=== PATIENT | female | born 1950 | race Caucasian/White ===

== ENCOUNTER → 2017-11-08 | Outpatient (REF) | payer MEDICARE, OTHER | LOC: M LAB REF 15:08 | DX: D23.12 Other benign neoplasm of skin of left eyelid, including canthus (principal) | CPT/HCPCS: 88305 ==

== ENCOUNTER 2019-04-25 14:54 | Inpatient (IN) | payer MEDICARE, OTHER ==
[~2019-04-25] VITALS: Ht 167.6 cm; Wt 138.8 kg
[2019-04-25] MEDS ORDERED: GI COCKTAIL 50ML BTL(HYOSCYAMINE/MAALOX/LIDOCAINE VISCOUS)(1:3:1) As Ordered ONE (15:11)
[2019-04-25] MEDS ORDERED: GI COCKTAIL 50ML BTL(HYOSCYAMINE/MAALOX/LIDOCAINE VISCOUS)(1:3:1) PO ONE (15:15)
--- NOTE | 2019-04-25 15:39 | REP ---
Clinical: Chest pain. Comparison: 08/07/2013. Findings: Cardiomegaly with indistinct pulmonary vasculature and increased markings as well as subtle lower lobe opacities suggest CHF/pulmonary interstitial edema. Differential diagnosis would include bronchitis and lower lobe infiltrates. No obvious effusion. No pneumothorax. Impression: Differential diagnosis includes CHF/interstitial edema versus bronchitis and multifocal infiltrates. Electronically Signed by Ruiz Ventura MD 04/25/2019 03:32 P
[2019-04-25 16:09] LABS: BASO % 0.3 % (0.0-1.0); EOS # 0.3 10^3/uL (0.0-0.5); EOS % 2.3 % (0.0-3.0); HEMATOCRIT 31.2 % (36.0-47.0); HEMOGLOBIN 9.5 g/dl (12.0-15.5); LYMPH # 0.6 10^3/uL (1.5-5.0); LYMPH % 5.4 % (24.0-44.0); MEAN CORPUSCULAR HEMOGLOBIN 29.8 pg (27.0-33.0); MEAN CORPUSCULAR HGB CONC 30.4 g/dl (32.0-36.5); MEAN CORPUSCULAR VOLUME 97.8 fl (80.0-96.0); MONO # 0.6 10^3/uL (0.0-0.8); MONO % 5.5 % (0.0-5.0); NEUTROPHILS # 9.9 10^3/uL (1.5-8.5); NEUTROPHILS % 86.2 % (36.0-66.0); PLATELET COUNT, AUTOMATED 242 10^3/uL (150-450); RED BLOOD COUNT 3.19 10^6/uL (4.00-5.40); WHITE BLOOD COUNT 11.5 10^3/uL (4.0-10.0)
[2019-04-25] MEDS ORDERED: ACET-683 PO (16:18)
[2019-04-25] MEDS ORDERED: CARV12.5 PO (16:18)
[2019-04-25] MEDS ORDERED: SYNT100T PO (16:18)
[2019-04-25] MEDS ORDERED: MAGN400C2 PO (16:18)
[2019-04-25] MEDS ORDERED: HYDR-3911 PO (16:18)
[2019-04-25] MEDS ORDERED: PEPC1TAB5 PO (16:18)
[2019-04-25] MEDS ORDERED: IRON18TA PO (16:18)
[2019-04-25] MEDS ORDERED: CVS1CAP2 PO (16:18)
[2019-04-25] MEDS ORDERED: LANTINJ4 SC ×2 (16:18)
[2019-04-25] MEDS ORDERED: ASPI81TA85 PO (16:18)
[2019-04-25] MEDS ORDERED: TORS20TA2 PO (16:18)
[2019-04-25] MEDS ORDERED: ALLO100T PO (16:18)
[2019-04-25 16:23] LABS: INR 1.1
[2019-04-25 16:24] LABS: PARTIAL THROMBOPLASTIN TIME 40.9 SECONDS (25.0-38.4)
[2019-04-25 16:37] LABS: ALBUMIN 3.4 GM/DL (3.2-5.2); BILIRUBIN,DIRECT 0.1 MG/DL (0.0-0.2); BILIRUBIN,TOTAL 0.5 MG/DL (0.2-1.0); CALCIUM LEVEL 8.8 MG/DL (8.8-10.2); CK-MB VALUE MASS 2.3 NG/ML (<3.6); CREATININE FOR GFR 2.23 MG/DL (0.55-1.30); FREE T4 1.74 NG/DL (0.76-1.46); GLOMERULAR FILTRATION RATE 23.3 (>45); MB/CK RELATIVE INDEX 2.19 (< OR =4); POTASSIUM SERUM 4.3 MEQ/L (3.5-5.1); THYROID STIMULATING HORMONE 2.74 uIU/ML (0.358-3.740); TOTAL PROTEIN 7.9 GM/DL (6.4-8.2); TROPONIN I 0.19 NG/ML (< 0.10)
--- NOTE | 2019-04-25 18:35 | REPVR ---
PROCEDURE INFORMATION: Exam: CT Chest Without Contrast Exam date and time: 04/25/2019 5:37 PM Age: 69 years old Clinical indication: Chest pain TECHNIQUE: Imaging protocol: Computed tomography of the chest without contrast. 3D rendering: MIP and/or 3D reconstructed images were created by the technologist. Radiation optimization: All CT scans at this facility use at least one of these dose optimization techniques: automated exposure control; mA and/or kV adjustment per patient size (includes targeted exams where dose is matched to clinical indication); or iterative reconstruction. COMPARISON: CR PORTABLE CHEST X-RAY 04/25/2019 3:29 PM FINDINGS: Lungs: 16 mm diameter right lower lobe nodule with irregular margins, unchanged since the prior study performed in 2013. Multifocal groundglass opacities, less prominent compared to the prior exam. Prominent reticular markings within both lungs. 4 mm right upper lobe pulmonary nodule (image 14 of series 202), unchanged. 5 mm left upper lobe pulmonary nodule (image 40 of series 202), unchanged. 5 mm nodule left upper lobe (image 28 of series 202), unchanged. New 5 mm nodule within the left upper lobe (image 28 of series 202). New 4 mm nodule within the supra-segment of the left lower lobe (image 39 of series 202). Pleural space: Tiny bilateral pleural effusions. No pneumothorax. Heart: Coronary atherosclerosis and coronary artery stents. Aorta: Unremarkable. No aortic aneurysm. Lymph nodes: Mediastinal and bilateral hilar lymphadenopathy unchanged. Gallbladder and bile ducts: Status post cholecystectomy. Bones/joints: Unremarkable. No acute fracture. Soft tissues: Unremarkable. IMPRESSION: 1. Tiny bilateral pleural effusions, new. 2. Prominent reticular markings and scattered groundglass lung opacities, possibly secondary to pulmonary edema. Other interstitial pneumonitis, including infection is not excluded. 3. Right lower lobe pulmonary nodule, measuring 16 mm, unchanged. 4. Mediastinal and bilateral hilar lymphadenopathy, unchanged. 5. Multiple small pulmonary nodules with 2 new pulmonary nodules, measuring 5 mm and 4 mm within the left upper lobe and left lower lobe. Followup imaging is recommended as per Fleischner criteria guidelines. For patients at low risk (minimal or absent history of smoking and of other known risk factors), no routine follow-up is indicated. For patients at high risk (history of smoking or of other known risk factors), consider optional CT at 12 months. (Mirela et al., Fleischner Society, 2017). Electronically signed by: Jayme Prince On 04/25/2019 18:34:45 PM
[2019-04-25] MEDS ORDERED: CALC250T PO (19:33)
[2019-04-25] MEDS ORDERED: PANT-23 PO (19:33)
[2019-04-25] MEDS ORDERED: ATOR1TAB21 PO (19:33)
[2019-04-25] MEDS ORDERED: SYNT125T PO (19:33)
[2019-04-25 19:42] LABS: CK-MB VALUE MASS 3.1 NG/ML (<3.6); MB/CK RELATIVE INDEX 3.04 (< OR =4); TROPONIN I 0.25 NG/ML (< 0.10)
[2019-04-25] MEDS ORDERED: FUROSEMIDE 40 MG/4 ML VIAL (J1940) IV ONE (20:00)
[2019-04-25] MEDS ORDERED: ACETAMINOPHEN 500 MG TAB PO PRN (21:45)
[2019-04-25] MEDS: PANTOPRAZOLE 40MG TAB (PROTONIX) PO SCH (23:02)
[2019-04-25] MEDS: CARVedilol 12.5 MG TAB PO SCH (23:02)
[2019-04-25] MEDS: **hydrALAZINE** 50 MG TAB PO SCH (23:02)
[2019-04-25] MEDS: HEPARIN SOD (PORCINE) 5000 UNITS/ML VIAL SC SCH (23:07)
--- NOTE | 2019-04-25 23:24 | HPEPDOC ---
[facility] Medical History & Physical Date of Admission Apr 25, 2019 Date of Service: Apr 25, 2019 Attending Physician: JAQUAN MILLER MD History and Physical CHIEF COMPLAINT: Shortness of breath and chest pain HISTORY OF PRESENT ILLNESS: 69-year-old female with past medical history of CHF, hypertension, gout, coronary artery disease, status post stent 1, diabetes mellitus and hypothyroidism presents at home with progressive shortness of breath and chest pain. She was admitted at [facility] last week and discharged on Saturday for CHF exacerbation. She reports feeling well after discharge, but started having progressive shortness of breath with epigastric/chest pain over the past couple days. She reports having worsening reflux symptoms over the past month has been started on Protonix and Pepcid but reports pain controlled symptoms. She reports significant improvement in dyspnea and complete resolution of chest pain after getting GI cocktail in the ED. She has no associated symptoms, denies any nausea, vomiting, abdominal pain, diarrhea or headaches. 10 point review of systems is negative except for above PAST MEDICAL HISTORY: 1. CHF. 2. Hypertension. 3. Gout. 4. Diabetes mellitus. 5. Hypothyroidism. 6. Coronary artery disease PAST SURGICAL HISTORY: 1. Cholecystectomy. SOCIAL HISTORY: Never smoker Denies alcohol. Denies drug use FAMILY HISTORY: Positive for heart disease ALLERGIES: Please see below. HOME MEDICATIONS: Please see below. PHYSICAL EXAMINATION: VITAL SIGNS: Please see below. GENERAL: No distress HEENT: Normocephalic, atraumatic, moist mucous membranes NECK: Supple CARDIOVASCULAR EXAMINATION: S1, S2, no murmurs RESPIRATORY EXAMINATION: Bibasilar rhonchi, no wheezing ABDOMINAL EXAMINATION: Soft, nontender, nondistended, positive bowel sounds EXTREMITIES: Range of motion intact SKIN: No rash NEUROLOGICAL EXAMINATION: Alert and oriented 3, no focal deficits PSYCHIATRIC EXAMINATION: Calm and cooperative LABORATORY DATA: See below. IMAGING: CT with vascular congestion and trace pleural effusions MICROBIOLOGY: Please see below. ASSESSMENT: 69-year-old female with extensive medical history, was recently admitted for CHF exacerbation, presents with symptoms concerning for CHF exacerbation and peptic ulcer disease. PLAN: 1. Acute on chronic CHF exacerbation. TTE pending, status post Lasix 40 g IV in the ED, continue Lasix 40 mg IV twice a day, weigh daily, monitor intake and output, fluid restriction of 1200 cc per day. 2. Peptic ulcer disease. Protonix 40 mg twice a day, Pepcid 20 mg twice a day. 3. Chronic kidney disease. Possible superimposed acute kidney injury, no previous labs for comparison, possible cardiorenal, will monitor with diuresis. 4. Diabetes mellitus. Decrease Levemir to 25 units twice a day, sliding scale insulin before meals and at bedtime. 5. Gout. Continue allopurinol 6. Hypertension. Continue Coreg and hydralazine 7. Coronary artery disease. Stable, continue aspirin, statin, beta rick 8. Hypothyroidism. Continue levothyroxine DVT prophylaxis: Heparin subcutaneous GI per flexes: PPI and Pepcid Vital Signs Vital Signs Date Time Temp Pulse Resp B/P (MAP) Pulse Ox O2 Delivery O2 Flow Rate FiO2 04/25/19 23:02 141/64 04/25/19 22:37 97.5 04/25/19 22:24 67 96 04/25/19 22:21 16 Room Air 04/25/19 17:39 2.0 Laboratory Data Labs 24H Laboratory Tests 2 04/25/19 15:54: Immature Granulocyte % (Auto) 0.3, Neutrophils (%) (Auto) 86.2H, Lymphocytes (%) (Auto) 5.4L, Monocytes (%) (Auto) 5.5H, Eosinophils (%) (Auto) 2.3, Basophils (%) (Auto) 0.3, Neutrophils # (Auto) 9.9H, Lymphocytes # (Auto) 0.6L, Monocytes # (Auto) 0.6, Eosinophils # (Auto) 0.3, Basophils # (Auto) 0.0, Nucleated Red Blood Cells % (auto) 0.0, Prothrombin Time 14.0, Prothromb Time International Ratio 1.10, Activated Partial Thromboplast Time 40.9H, Anion Gap 6L, Glomerular Filtration Rate 23.3L, Calcium Level 8.8, Total Bilirubin 0.5, Direct Bilirubin 0.1, Aspartate Amino Transf (AST/SGOT) 17, Alanine Aminotransferase (ALT/SGPT) 18, Alkaline Phosphatase 114, Total Creatine Kinase 105, Creatine Kinase MB 2.3, Creatine Kinase MB Relative Index 2.19, Troponin I 0.19H, NV-Pui-M-Type Natriuretic Peptide 6047H, Total Protein 7.9, Albumin 3.4, Albumin/Globulin Ratio 0.76L, Lipase 92, Thyroid Stimulating Hormone (TSH) 2.740, Free Thyroxine 1.74H 04/25/19 15:59: Urine Color YELLOW, Urine Appearance CLEAR, Urine pH 6.0, Urine Specific [place] 1.008, Urine Protein NEGATIVE, Urine Glucose (UA) NEGATIVE, Urine Ketones NEGATIVE, Urine Blood 1+H, Urine Nitrite NEGATIVE, Urine Bilirubin NEGATIVE, Urine Urobilinogen 0.2, Urine Leukocyte Esterase NEGATIVE, Urine WBC (Auto) 4H, Urine RBC (Auto) 1, Urine Hyaline Casts (Auto) 1, Urine Bacteria (Auto) 1+H, Urine Squamous Epithelial Cells 1, Urine Mucus (Auto) SMALL, Urine Sperm (Auto) 04/25/19 19:09: Total Creatine Kinase 102, Creatine Kinase MB 3.1, Creatine Kinase MB Relative Index 3.04, Troponin I 0.25#H CBC/BMP Laboratory Tests 04/25/19 15:54 Home Medications Scheduled Acetaminophen (Acetaminophen) 500 Mg Tablet, 1,000 MG PO BID Allopurinol (Allopurinol) 100 Mg Tablet, 100 MG PO DAILY Aspirin (Aspir 81) 81 Mg Tablet.dr, 81 MG PO DAILY Atorvastatin Calcium (Atorvastatin Calcium) 20 Mg Tablet, 20 MG PO DAILY Calcium Citrate (Calcium Citrate) 250 Mg Tablet, 250 MG PO DAILY Carvedilol (Carvedilol) 12.5 Mg Tablet, 12.5 MG PO BID Famotidine (Pepcid) 20 Mg Tablet, 40 MG PO DAILY Hydralazine HCl (Hydralazine HCl) 50 Mg Tablet, 100 MG PO BID Insulin Glargine,Hum.rec.anlog (Lantus Solostar) 100 Unit/1 Ml Insuln.pen, 50 UNIT SC QHS Insulin Glargine,Hum.rec.anlog (Lantus Solostar) 100 Unit/1 Ml Insuln.pen, 50 UNITS SC QAM Iron (Iron) 18 Mg Tablet, 18 MG PO DAILY Lactobacillus Combo No.10 (Probiotic) 1 Each Capsule, 1 TAB PO DAILY Levothyroxine Sodium (Synthroid) 125 Mcg Tablet, 125 MCG PO DAILY Magnesium Oxide (Magnesium) 400 Mg Capsule, 400 MG PO DAILY Pantoprazole Sodium (Pantoprazole Sodium) 40 Mg Tablet.dr, 40 MG PO QPM Torsemide (Torsemide) 20 Mg Tablet, 40 MG PO DAILY Allergies Coded Allergies: Sulfa (Sulfonamide Antibiotics) (Verified Allergy, Intermediate, rash, 04/25/19) A-FIB/CHADSVASC A-FIB History Current/History of A-Fib/PAF?: No JAQUAN MILLER MD Apr 25, 2019 23:24
[2019-04-25 23:45] VITALS: BP 141/64
[2019-04-26] VITALS (17 sets, daily range): BP systolic 123–194; BP diastolic 49–96
[2019-04-26] MEDS ORDERED: GLUCAGON FOR INJ 1 MG VIAL (J1610) SC PRN (00:15)
[2019-04-26] MEDS ORDERED: GLUCOSE 4 GM CHEW TABLET PO PRN (00:15)
[2019-04-26] MEDS ORDERED: DEXTROSE 50% 50 ML SYRINGE IV PRN (00:15)
[2019-04-26] MEDS: LEVEMIR (INSULIN DETEMIR) 1 UNITS/0.01ML SC SCH ×3 (01:43→21:00)
[2019-04-26] MEDS: HumaLOG INSULIN (NovoLOG) PER UNIT SC SCH ×5 (01:43→21:00)
[2019-04-26 02:20] LABS: CK-MB VALUE MASS 5.7 NG/ML (<3.6); MB/CK RELATIVE INDEX 4.38 (< OR =4); TROPONIN I 0.73 NG/ML (< 0.10)
[2019-04-26] MEDS ORDERED: LEVOTHYROXINE 125MCG TABLET (0.125MG) PO SCH (06:00)
[2019-04-26] MEDS: FUROSEMIDE 40 MG/4 ML VIAL (J1940) IV SCH ×2 (08:23→21:00)
[2019-04-26] MEDS: FAMOTIDINE 20 MG TAB PO SCH ×3 (08:24→21:19)
[2019-04-26] MEDS: PANTOPRAZOLE 40MG TAB (PROTONIX) PO SCH ×3 (08:24→21:19)
[2019-04-26] MEDS: **hydrALAZINE** 50 MG TAB PO SCH ×2 (08:24→21:00)
[2019-04-26] MEDS: CARVedilol 12.5 MG TAB PO SCH ×3 (08:25→21:20)
[2019-04-26] MEDS: HEPARIN SOD (PORCINE) 5000 UNITS/ML VIAL SC SCH (08:25)
[2019-04-26] MEDS ORDERED: TORSEMIDE 20 MG TAB PO SCH (09:00)
[2019-04-26] MEDS ORDERED: ASPIRIN 81 MG ENTERIC TAB PO SCH (09:00)
[2019-04-26] MEDS ORDERED: allopurinoL 100 MG TAB PO SCH (09:00)
[2019-04-26] MEDS ORDERED: ATORVASTATIN 20 MG TAB PO SCH (09:00)
--- NOTE | 2019-04-26 11:16 | IPNPDOC ---
Date Seen The patient was seen on 04/26/19. Progress Note SUBJECTIVE: Patient appeared to be comfortable this morning. Denies any chest pain, discomfort or SOB. Reportedly LE swelling had improved significantly. OBJECTIVE PHYSICAL EXAMINATION: VITAL SIGNS: Please see below. General: No acute distress, Alert, morbidly obese Eyes: Normal sclera, EOMI HENT: Atraumatic Cardiovascular: Normal rate. Pulmonary: Decrease breath sounds, no wheezing appreciated GI: Soft, nontender, nondistended Skin: Significant chronic venous stasis in LE with discoloration in LE below the knees with some blisters. Neuro: CN grossly intact. No focal deficits. Strengths equal b/l. Psych: oriented x 3 LABORATORY DATA, IMAGING STUDIES, MICROBIOLOGY: Please see below. DVT prophylaxis ordered?: HSQ ASSESSMENT AND PLAN: 1. Suspect acute on chronic CHF - pending TTE. c/w Lasix IV BID. - LE swelling reportedly improved significantly although still appear very swollen. - Monitor I/O, daily weights. - fluid restriction. 2. PUD - Chest pain occurs post meals with resolution of symptoms with Gi cocktail. - c/w Protonix/Pepcid. 3. Suspect CKD - monitor BMP. Unknown baseline. 4. DM - Lev decreased to 25 units BID with ISS ACHS, as just as needed. 5. HTN - BP controlled. c/w coreg and hydralazine 6. Gout - c./w allopurinol 7. CAD - c/w home med 8. Hypothyroidism - c/w synthroid Dispo: Home once medically cleared VS, I&O, 24H, Fishbone Vital Signs/I&O Vital Signs Date Time Temp Pulse Resp B/P (MAP) Pulse Ox O2 Delivery O2 Flow Rate FiO2 04/26/19 08:25 70 123/53 04/26/19 06:00 98.9 19 96 Room Air 04/25/19 17:39 2.0 I&O- Last 24 Hours up to 6 AM 04/26/19 06:00 Intake Total 520 ml Output Total 1425 ml Balance -905 ml Laboratory Data 24H LABS Laboratory Tests 2 04/25/19 15:54: Immature Granulocyte % (Auto) 0.3, Neutrophils (%) (Auto) 86.2H, Lymphocytes (%) (Auto) 5.4L, Monocytes (%) (Auto) 5.5H, Eosinophils (%) (Auto) 2.3, Basophils (%) (Auto) 0.3, Neutrophils # (Auto) 9.9H, Lymphocytes # (Auto) 0.6L, Monocytes # (Auto) 0.6, Eosinophils # (Auto) 0.3, Basophils # (Auto) 0.0, Nucleated Red Blood Cells % (auto) 0.0, Prothrombin Time 14.0, Prothromb Time International Ratio 1.10, Activated Partial Thromboplast Time 40.9H, Anion Gap 6L, Glomerular Filtration Rate 23.3L, Calcium Level 8.8, Total Bilirubin 0.5, Direct Bilirubin 0.1, Aspartate Amino Transf (AST/SGOT) 17, Alanine Aminotransferase (ALT/SGPT) 18, Alkaline Phosphatase 114, Total Creatine Kinase 105, Creatine Kinase MB 2.3, Creatine Kinase MB Relative Index 2.19, Troponin I 0.19H, OP-Bep-B-Type Natriuretic Peptide 6047H, Total Protein 7.9, Albumin 3.4, Albumin/Globulin Ratio 0.76L, Lipase 92, Thyroid Stimulating Hormone (TSH) 2.740, Free Thyroxine 1.74H 04/25/19 15:59: Urine Color YELLOW, Urine Appearance CLEAR, Urine pH 6.0, Urine Specific [place] 1.008, Urine Protein NEGATIVE, Urine Glucose (UA) NEGATIVE, Urine Ketones NEGATIVE, Urine Blood 1+H, Urine Nitrite NEGATIVE, Urine Bilirubin NEGATIVE, Urine Urobilinogen 0.2, Urine Leukocyte Esterase NEGATIVE, Urine WBC (Auto) 4H, Urine RBC (Auto) 1, Urine Hyaline Casts (Auto) 1, Urine Bacteria (Auto) 1+H, U rine Squamous Epithelial Cells 1, Urine Mucus (Auto) SMALL, Urine Sperm (Auto) 04/25/19 19:09: Total Creatine Kinase 102, Creatine Kinase MB 3.1, Creatine Kinase MB Relative Index 3.04, Troponin I 0.25#H 04/26/19 01:05: Total Creatine Kinase 130, Creatine Kinase MB 5.7H, Creatine Kinase MB Relative Index 4.38H, Troponin I 0.73#H 04/26/19 01:23: Bedside Glucose (Misc Panel) 84 04/26/19 05:41: Bedside Glucose (Misc Panel) 62L 04/26/19 06:30: Bedside Glucose (Misc Panel) 108 CBC/BMP Laboratory Tests 04/25/19 15:54 XAVIER,CANH T. MD Apr 26, 2019 11:16
--- NOTE | 2019-04-26 15:35 | ECGEPIP ---
[facility] - ED Test Date: 2019-04-25 Pat Name: DEEDEE GRAY Department: Room: - Gender: Female Rehabilitation Specialist: : 1950 Requested By: RICHARD Gonzalez Order Number: [id number] Reading MD: Henrique Renee Measurements Intervals [place] Rate: 74 P: 56 [place]: 166 QRS: 20 QRSD: 108 T: 116 QT: 405 QTc: 450 Interpretive Statements SINUS RHYTHM ST ELEVATION IN AVR>V1, DIFFUSE ST DEPRESSIONS, CONSIDER ACUTE LCMA OCCLUSION Electronically Signed on 04-26-2019 15:34:54 EST by Henrique Renee
--- NOTE | 2019-04-26 15:41 | ECGEPIP ---
[facility] - ED Test Date: 2019-04-25 Pat Name: DEEDEE GRAY Department: Room: [place] [address] Gender: Female Head Batcher: ZACH : 1950 Requested By: RICHARD Gonzalez Order Number: [id number] Reading MD: Henrique Renee Measurements Intervals [place] Rate: 70 P: 48 [place]: 169 QRS: 12 QRSD: 108 T: 117 QT: 402 QTc: 436 Interpretive Statements SINUS RHYTHM ST ELEVATION IN AVR.V1, WITH WIDESPRRSASD ST DEPRESSIONS PERSIST, CONSIDER ACUTE LMCA OCCLUSION Electronically Signed on 04-26-2019 15:40:39 EST by Henrique Renee
[2019-04-26] MEDS ORDERED: MAALOX 30 ML SUSP *UDC PO ONE (19:00)
[2019-04-26] MEDS ORDERED: NITROGLYCERIN 0.4 MG SUBL TABLET As Ordered ONE (19:23)
[2019-04-26] MEDS ORDERED: GI COCKTAIL 50ML BTL(HYOSCYAMINE/MAALOX/LIDOCAINE VISCOUS)(1:3:1) PO ONE (19:30)
[2019-04-26] MEDS ORDERED: NITROGLYCERIN 0.4 MG SUBL TABLET SL STA (19:40)
[2019-04-26 19:57] LABS: HEMATOCRIT 31.2 % (36.0-47.0); HEMOGLOBIN 9.6 g/dl (12.0-15.5); MEAN CORPUSCULAR HEMOGLOBIN 29.8 pg (27.0-33.0); MEAN CORPUSCULAR HGB CONC 30.8 g/dl (32.0-36.5); MEAN CORPUSCULAR VOLUME 96.9 fl (80.0-96.0); PLATELET COUNT, AUTOMATED 275 10^3/uL (150-450); RED BLOOD COUNT 3.22 10^6/uL (4.00-5.40)
[2019-04-26] MEDS ORDERED: NITROGLYCERIN 2% OINT 1 GM *U/D* PKT TOP SCH (20:00)
[2019-04-26] MEDS ORDERED: CLOPIDOGREL 75 MG TAB PO STA (20:04)
[2019-04-26] MEDS ORDERED: HEPARIN DRIP 25,000 UNITS in IV 1 EA IV SCH (20:04)
[2019-04-26 20:09] LABS: INR 1.15; PROTHROMBIN TIME 14.4 SECONDS (11.8-14.0)
[2019-04-26 20:10] LABS: PARTIAL THROMBOPLASTIN TIME 42.8 SECONDS (25.0-38.4)
[2019-04-26] MEDS ORDERED: ASPIRIN 325 MG TAB PO ONE (20:15)
[2019-04-26] MEDS ORDERED: HEPARIN SOD (PORCINE) 5000 UNITS/ML VIAL IV ONE (20:15)
[2019-04-26] MEDS ORDERED: NITROGLYCERIN 2% OINT 1 GM *U/D* PKT As Ordered ONE (20:18)
[2019-04-26 20:27] LABS: ALBUMIN 3.5 GM/DL (3.2-5.2); BILIRUBIN,TOTAL 0.6 MG/DL (0.2-1.0); CALCIUM LEVEL 8.5 MG/DL (8.8-10.2); CREATININE FOR GFR 2.47 MG/DL (0.55-1.30); GLOMERULAR FILTRATION RATE 20.7 (>45); POTASSIUM SERUM 4.3 MEQ/L (3.5-5.1); TOTAL PROTEIN 7.6 GM/DL (6.4-8.2); TROPONIN I 1.23 NG/ML (< 0.10)
--- NOTE | 2019-04-26 20:30 | REP ---
Clinical: Chest pain. Comparison: 04/25/2019. Findings: Stable cardiomegaly. Increased perihilar opacities with indistinct pulmonary vasculature, cephalization, and increased interstitial markings suggesting pulmonary interstitial edema. Differential diagnosis includes multifocal pneumonia. No obvious effusion. No pneumothorax. Skeletal structures stable. Impression: Increasing findings suggesting worsening pulmonary edema. Differential diagnosis includes multifocal pneumonia. Electronically Signed by Ruiz Ventura MD 04/26/2019 08:21 P
[2019-04-26] MEDS: METOPROLOL 5 MG/5 ML VIAL IV SCH ×3 (20:39→22:22)
[2019-04-26] MEDS ORDERED: NITROGLYCERIN/D5W 100MCG/ML 25 MG in IV 1 EA IV SCH (21:00)
[2019-04-26] MEDS: ATORVASTATIN 20 MG TAB PO SCH ×2 (21:00→21:20)
[2019-04-26] MEDS ORDERED: MORPHINE 2 MG/ML 1ML VIAL (J2270) As Ordered ONE (21:29)
--- NOTE | 2019-04-26 21:37 | DS.PDOC ---
Discharge Summary General Date of Admission Apr 25, 2019 at 21:44 Date of Discharge 04/26/19 Attending Physician: JAQUAN MILLER MD Discharge Summary PROCEDURES PERFORMED DURING STAY: None ADMITTING DIAGNOSES: 1. NSTEMI DISCHARGE DIAGNOSES: 1. NSTEMI COMPLICATIONS/CHIEF COMPLAINT: Cad, Chf, Ckd, Gout. HISTORY OF PRESENT ILLNESS: 69 y.o female w/ an extensive medical history was admitted for CHF exacerbation. She had CP on presentation which resolved w/ GI coctail and was thought to be epigastric in nature. She had mildly elevated troponin which were thought to be from elevated creatinine/demand ischemia. She reportedly did well throughout the day but started having sudden precordial chest pain in the evening today. I evaluated her at bedside, repeated her labs & EKG. EKG showed prior ST depressions in Leads I, II, V4-V6 with new changes (T- wave inversions in leads III & AvF). Her chest pain improved temporarily with SL Nitroglycerin, she received a total of 4 SL doses which resolved her pain for a few minutes. Nitropaste was then applied with slight improvement in CP but not complete resolution, she was also given a dose of GI coctail without improvement. Her labs showed an elevated of Troponin to 1.23; case was discussed w/ Dr. Terry from Cardiology, who recommended immediate transfer to a facility able to perform heart cath. [facility] was called but they didn't have any beds available, then [facility] was called but we had difficulty ob taining their transfer center. [facility] was then called, discussed case with their Bean Roaster who accepted the patient for immediate transfer; she will be going to their CCU. Air transport was attempted due to acuity of her situation but declined due to weather conditions. She will be transferred via ambulance, STAT transfer being arranged currently. Patient continues to have chest pain, will start patient on Nitroglycerin drip. She was also treated w/ Aspirin 325 mg, Plavix 150 mg & started on a heparin gtt; she was also given two doses of Metoprolol 5 mg IV. She is currently hypertensive SBP ~160s. HOSPITAL COURSE: as above] DISCHARGE MEDICATIONS: Please see below. ALLERGIES: Please see below. PHYSICAL EXAMINATION ON DISCHARGE: VITAL SIGNS: Please see below. GENERAL: mild distress HEENT: normocephalic, atraumatic, moist mucous membranes NECK: supple CARDIOVASCULAR EXAMINATION: S1, S2, no murmurs RESPIRATORY EXAMINATION: tachypneic, bibasilar ronchi, no wheezing ABDOMINAL EXAMINATION: soft, non-tender, non-distended EXTREMITIES: ROM intact SKIN: no rash NEUROLOGICAL EXAMINATION: no focal deficits PSYCHIATRIC EXAMINATION: cooperative LABORATORY DATA: Please see below. IMAGING: CXR w/ vascular congestion PROGNOSIS: guarded ACTIVITY: bed rest DIET: NPO DISCHARGE PLAN: f/u with Bean Roaster at [facility] DISPOSITION: [facility] DISCHARGE CONDITION: hemodynamically stable w/ NSTEMI TIME SPENT ON DISCHARGE: Greater than 45 minutes. Vital Signs/I&Os Vital Signs Date Time Temp Pulse Resp B/P (MAP) Pulse Ox O2 Delivery O2 Flow Rate FiO2 04/26/19 20:39 84 174/74 04/26/19 17:30 20 92 Room Air 04/26/19 14:00 98.1 04/25/19 17:39 2.0 I&O- Last 24 Hours up to 6 AM 04/26/19 06:00 Intake Total 520 ml Output Total 1425 ml Balance -905 ml Laboratory Data Labs 24H Laboratory Tests 2 04/26/19 01:05: Total Creatine Kinase 130, Creatine Kinase MB 5.7H, Creatine Kinase MB Relative Index 4.38H, Troponin I 0.73#H 04/26/19 01:23: Bedside Glucose (Misc Panel) 84 04/26/19 05:41: Bedside Glucose (Misc Panel) 62L 04/26/19 06:30: Bedside Glucose (Misc Panel) 108 04/26/19 11:57: Bedside Glucose (Misc Panel) 174H 04/26/19 16:58: Bedside Glucose (Misc Panel) 145H 04/26/19 19:39: Nucleated Red Blood Cells % (auto) 0.0, Prothrombin Time 14.4H, Prothromb Time International Ratio 1.15, Activated Partial Thromboplast Time 42.8H, Anion Gap 8, Glomerular Filtration Rate 20.7L, Calcium Level 8.5L, Total Bilirubin 0.6, Aspartate Amino Transf (AST/SGOT) 25, Alanine Aminotransferase (ALT/SGPT) 20, Alkaline Phosphatase 115, Troponin I 1.23#H, Total Protein 7.6, Albumin 3.5, Albumin/Globulin Ratio 0.85L CBC/BMP Laboratory Tests 04/26/19 19:39 FSBS Laboratory Tests Test 04/26/19 01:23 04/26/19 05:41 04/26/19 06:30 04/26/19 11:57 Range/Units Bedside Glucose (Misc Panel) 84 62 108 174 80-115 MG/DL Test 04/26/19 16:58 Range/Units Bedside Glucose (Misc Panel) 145 80-115 MG/DL Discharge Medications Scheduled Acetaminophen (Acetaminophen) 500 Mg Tablet, 1,000 MG PO BID, (Reported) Allopurinol (Allopurinol) 100 Mg Tablet, 100 MG PO DAILY, (Reported) Aspirin (Aspir 81) 81 Mg Tablet.dr, 81 MG PO DAILY, (Reported) Atorvastatin Calcium (Atorvastatin Calcium) 20 Mg Tablet, 20 MG PO DAILY, (Reported) Calcium Citrate (Calcium Citrate) 250 Mg Tablet, 250 MG PO DAILY, (Reported) Carvedilol (Carvedilol) 12.5 Mg Tablet, 12.5 MG PO BID, (Reported) Famotidine (Pepcid) 20 Mg Tablet, 40 MG PO DAILY, (Reported) Hydralazine HCl (Hydralazine HCl) 50 Mg Tablet, 100 MG PO BID, (Reported) Insulin Glargine,Hum.rec.anlog (Lantus Solostar) 100 Unit/1 Ml Insuln.pen, 50 UNIT SC QHS, (Reported) Insulin Glargine,Hum.rec.anlog (Lantus Solostar) 100 Unit/1 Ml Insuln.pen, 50 UNITS SC QAM, (Reported) Iron (Iron) 18 Mg Tablet, 18 MG PO DAILY, (Reported) Lactobacillus Combo No.10 (Probiotic) 1 Each Capsule, 1 TAB PO DAILY, (Reported) Levothyroxine Sodium (Synthroid) 125 Mcg Tablet, 125 MCG PO DAILY, (Reported) Magnesium Oxide (Magnesium) 400 Mg Capsule, 400 MG PO DAILY, (Reported) Pantoprazole Sodium (Pantoprazole Sodium) 40 Mg Tablet.dr, 40 MG PO QPM, (Reported) Torsemide (Torsemide) 20 Mg Tablet, 40 MG PO DAILY, (Reported) Allergies Coded Allergies: Sulfa (Sulfonamide Antibiotics) (Verified Allergy, Intermediate, rash, 04/25/19) JAQUAN MILLER MD Apr 26, 2019 21:37
[2019-04-26] MEDS ORDERED: MORPHINE 2 MG/ML 1ML VIAL (J2270) IV ONE (22:00)
[2019-04-26 22:17] LABS: ABG BASE EXCESS -0.3 (-2.0-2.0); ABG HCO3 24.5 MEQ/L (22.0-26.0); ABG O2 SATURATION 98.1 % (95.0-99.0); ABG PARTIAL PRESSURE CO2 40.6 mmHg (35.0-45.0); ABG PARTIAL PRESSURE O2 109.5 mmHg (75.0-100.0); ABG STANDARD HCO3 24.3 MEQ/L (22.0-26.0); ABG TOTAL CO2 25.8 MEQ/L (23.0-31.0); ABG pH (ARTERIAL) 7.399 UNITS (7.350-7.450)
[2019-04-26] MEDS: NITROGLYCERIN 0.3 MG SUBL TAB SL PRN ×3 (23:16→23:20)
--- NOTE | 2019-04-27 00:16 | ECGEPIP ---
[facility] Test Date: 2019-04-26 Pat Name: DEEDEE GRAY Department: Room: [place] [address] Gender: Female Distribution Collection Operator: FLOR : 1950 Requested By: JAQUAN Vazquez Order Number: [id number] Reading MD: Rupesh Krueger Measurements Intervals [place] Rate: 79 P: 7 [place]: 169 QRS: 39 QRSD: 108 T: -68 QT: 396 QTc: 454 Interpretive Statements SINUS RHYTHM Nonspecific ST-T wave abnormalities Similar to tracing done 04-25-19 Electronically Signed on 04-27-2019 0:15:38 EST by Rupesh Krueger
[2020-04-25] MEDS ORDERED: ATORVASTATIN 20 MG TAB PO SCH (21:00)
== END 2019-04-26 22:57 | disposition short-term general hospital (02) | DRG 281 ==
LOC: M ED 14:54 → M ED INP 21:44 → M MSPAV 22:42 → M PCU 04-26 19:56
PROVIDERS: ADMIT Internal Medicine; ATTEND Internal Medicine
DX: I21.4 Non-ST elevation (NSTEMI) myocardial infarction (principal); I13.0 Hypertensive heart and chronic kidney disease with heart failure and stage 1 through stage 4 chronic kidney disease, or unspecified chronic kidney disease; I50.9 Heart failure, unspecified; I25.10 Atherosclerotic heart disease of native coronary artery without angina pectoris; M10.9 Gout, unspecified; N18.9 Chronic kidney disease, unspecified; Z79.899 Other long term (current) drug therapy; Z79.82 Long term (current) use of aspirin; Z79.4 Long term (current) use of insulin; Z88.2 Allergy status to sulfonamides; E11.9 Type 2 diabetes mellitus without complications; E03.9 Hypothyroidism, unspecified

== ENCOUNTER 2023-10-23 10:25 | Inpatient (IN) | payer MEDICARE, OTHER ==
[~2023-10-23] VITALS: Ht 162.6 cm; Wt 116.3 kg
[~2023-10-23 10:25] MED LIST changes: -ACET32TAB PO; -ASPI81TA26 PO; -ATOR40TA75 PO; -BISA10SU4 PR; -CARV6.25 PO; -FLEEENE12 PR; -FURO10EL PO; -GLUC1KIT IM; -INSUH10VL SC; -LEVO125T4 PO; -MELA5TAB58 PO; -METO25TA PO; -MOM30SS2 PO; -POTA20PW PO; -TORS100T PO
[2023-10-23 11:28] LABS: VENOUS BASE EXCESS 0.2 (-2.0-2.0); VENOUS HCO3 25.4 MMOL/L (23.0-27.0); VENOUS PARTIAL PRESSURE CO2 43.7 mmHg (38.0-50.0); VENOUS PH 7.382 UNITS (7.330-7.430); VENOUS STANDARD HCO3 24.5 MMOL/L; VENOUS TOTAL CO2 26.7 MMOL/L (24.0-28.0)
[2023-10-23 11:39] LABS: BASO % 0.5 % (0.0-1.0); EOS # 0.1 10^3/uL (0.0-0.5); EOS % 1.6 % (0.0-3.0); HEMATOCRIT 31.7 % (36.0-47.0); HEMOGLOBIN 9.4 g/dl (12.0-15.5); LYMPH # 0.4 10^3/uL (1.5-5.0); LYMPH % 4.7 % (24.0-44.0); MEAN CORPUSCULAR HEMOGLOBIN 26.9 pg (27.0-33.0); MEAN CORPUSCULAR HGB CONC 29.7 g/dl (32.0-36.5); MEAN CORPUSCULAR VOLUME 90.6 fl (80.0-96.0); MONO # 0.6 10^3/uL (0.0-0.8); MONO % 7.9 % (2.0-8.0); NEUTROPHILS # 6.3 10^3/uL (1.5-8.5); NEUTROPHILS % 84.9 % (36.0-66.0); PLATELET COUNT, AUTOMATED 135 10^3/uL (150-450); WHITE BLOOD COUNT 7.4 10^3/uL (4.0-10.0)
[2023-10-23] MEDS: FUROSEMIDE 40MG/4ML VIAL IV ONE (11:40)
[2023-10-23 11:51] LABS: INR 1.23; PROTHROMBIN TIME 15.2 SECONDS (12.5-14.5)
[2023-10-23 12:04] LABS: THYROID STIMULATING HORMONE 6.331 uIU/ML (0.55-4.78)
[2023-10-23 12:16] LABS: BILIRUBIN,DIRECT 0.7 MG/DL (<0.4); BILIRUBIN,TOTAL 1.2 MG/DL (0.3-1.2); CALCIUM LEVEL 8.3 MG/DL (8.3-10.6); CREATININE FOR GFR 3.23 MG/DL (0.55-1.30); MAGNESIUM LEVEL 2.4 MG/DL (1.8-2.4); POTASSIUM SERUM 4.7 MMOL/L (3.5-5.1); TOTAL PROTEIN 6.7 G/DL (5.7-8.2)
[2023-10-23] MEDS ORDERED: GLUCAGON INJ 1MG VIAL SC PRN (13:10)
[2023-10-23] MEDS ORDERED: GLUCOSE 4 GM CHEW PO PRN (13:10)
[2023-10-23] MEDS ORDERED: DEXTROSE 50% 50ML SYRINGE IV PRN (13:10)
[2023-10-23 13:21] LABS: CK-MB VALUE MASS 1.7 NG/ML (<3.6)
[2023-10-23 13:23] LABS: PERCENT SATURATION 16.8 % (13.2-45.0)
[2023-10-23 13:25] LABS: FERRITIN 236.2 NG/ML (7.3-270.7); FREE T3 1.8 PG/ML (2.3-4.2)
[2023-10-23 13:26] LABS: FREE T4 1.21 NG/DL (0.89-1.76)
[2023-10-23 13:27] LABS: MB/CK RELATIVE INDEX 5.31 (< OR =4)
[2023-10-23] MEDS ORDERED: MELA5TAB58 PO (14:06)
[2023-10-23] MEDS ORDERED: ASPI81TA26 PO (14:06)
[2023-10-23] MEDS ORDERED: ATOR40TA75 PO (14:06)
[2023-10-23] MEDS ORDERED: POTA20PW PO (14:06)
[2023-10-23] MEDS ORDERED: METO25TA PO (14:06)
[2023-10-23] MEDS ORDERED: CARV6.25 PO (14:06)
[2023-10-23] MEDS ORDERED: TORS100T PO (14:06)
[2023-10-23] MEDS ORDERED: LEVO125T4 PO (14:08)
[2023-10-23] MEDS ORDERED: INSUH10VL SC (14:14)
[2023-10-23] MEDS ORDERED: BISA10SU4 PR (14:21)
[2023-10-23] MEDS ORDERED: FLEEENE12 PR (14:21)
[2023-10-23] MEDS ORDERED: MOM30SS2 PO (14:21)
[2023-10-23] MEDS ORDERED: GLUC1KIT IM (14:21)
[2023-10-23] MEDS ORDERED: ACET32TAB PO (14:21)
[2023-10-23] MEDS ORDERED: FURO10EL PO (14:21)
[2023-10-23] MEDS ORDERED: HOME MED LIST COMPLETE! XX SCH (14:25)
[2023-10-23] MEDS ORDERED: CEFTAROLINE FOSAMIL 600 MG in D5W MINI-BAG PLUS 50 ML IV SCH (16:35)
[2023-10-23] MEDS: INSULIN LISPRO (NovoLOG) PER UNIT SC SCH ×2 (18:11→21:00)
[2023-10-23] MEDS: HEPARIN SOD (PORCINE) 5000UNITS/ML 1ML VIAL/SYRINGE SQ SCH (21:00)
[2023-10-23] MEDS: CARVedilol 6.25 MG TAB PO SCH (21:29)
[2023-10-23] MEDS: ACETAMINOPHEN 500 MG TAB PO SCH (21:30)
[2023-10-24] VITALS: BP 126/63; TEMP 97.9; O2SAT 99
[2023-10-24 04:24] VITALS: BP 117/57; TEMP 97.7; O2SAT 98
[2023-10-24] MEDS: CEFTAROLINE FOSAMIL 600 MG in D5W MINI-BAG PLUS 50 ML IV ONE (05:20)
[2023-10-24] MEDS: LEVOTHYROXINE 125MCG TABLET (0.125MG) PO SCH (06:37)
[2023-10-24 07:38] VITALS: BP 133/59; TEMP 97.4; O2SAT 99
[2023-10-24 07:57] LABS: HEMATOCRIT 30.4 % (36.0-47.0); MEAN CORPUSCULAR HEMOGLOBIN 27.2 pg (27.0-33.0); MEAN CORPUSCULAR HGB CONC 29.6 g/dl (32.0-36.5); MEAN CORPUSCULAR VOLUME 91.8 fl (80.0-96.0); PLATELET COUNT, AUTOMATED 115 10^3/uL (150-450); RED BLOOD COUNT 3.31 10^6/uL (4.00-5.40); WHITE BLOOD COUNT 5.3 10^3/uL (4.0-10.0)
[2023-10-24 08:28] LABS: CALCIUM LEVEL 8.2 MG/DL (8.3-10.6); CHOLESTEROL RISK RATIO 2.95 (<5); CK-MB VALUE MASS 1.3 NG/ML (<3.6); CREATININE FOR GFR 3.44 MG/DL (0.55-1.30); GLOMERULAR FILTRATION RATE 13.9 (>39); HDL CHOLESTEROL 19.3 MG/DL (>40); LDL CHOLESTEROL 22.1 MG/DL (<100); MB/CK RELATIVE INDEX 6.5 (< OR =4); NON-HDL-C 37.7 MG/DL; POTASSIUM SERUM 3.8 MMOL/L (3.5-5.1)
[2023-10-24 08:52] LABS: HEMOGLOBIN A1c 6.4 % (4.0-6.0)
[2023-10-24] MEDS: ASPIRIN 81MG CHEW TABLET PO SCH (09:15)
[2023-10-24] MEDS: ATORVASTATIN 20 MG TAB PO SCH (09:15)
[2023-10-24] MEDS: cefTRIAXone SOD 2 GM in D5W MINI-BAG PLUS 50 ML IV SCH (09:15)
[2023-10-24] MEDS: DOXYCYCLINE HYCLATE 100MG TABLET PO SCH (09:15)
[2023-10-24] MEDS: PANTOPRAZOLE 40MG TAB (PROTONIX) PO SCH (09:16)
[2023-10-24] MEDS: allopurinoL 100 MG TAB PO SCH (09:16)
[2023-10-24] MEDS ORDERED: CEFTAROLINE FOSAMIL 300 MG in D5W 50 ML IV SCH (10:00)
[2023-10-24] MEDS: POTASSIUM CHLORIDE 10MEQ SR TABLET PO SCH (10:25)
[2023-10-24] MEDS: FERRIC CARBOXYMALTOSE INJ 750 MG, VIAL MATE ADAPTER 1 EACH in NS 250 ML IV ONE (10:42)
[2023-10-24 12:00] VITALS: BP 138/61; TEMP 97.4; O2SAT 100
[2023-10-24] MEDS: FUROSEMIDE injection 250 MG in D5W 225 ML IV SCH (12:25)
[2023-10-24 16:38] VITALS: BP 131/69; TEMP 96.8; O2SAT 98
[2023-10-24 19:00] VITALS: BP 130/60; TEMP 96.8; O2SAT 98
[2023-10-25] VITALS (7 sets, daily range): BP systolic 110–151; BP diastolic 58–72; TEMP 96.6–97.2; O2SAT 93–100
[2023-10-25 08:24] LABS: HEMATOCRIT 31.3 % (36.0-47.0); HEMOGLOBIN 9.4 g/dl (12.0-15.5); MEAN CORPUSCULAR HEMOGLOBIN 27.7 pg (27.0-33.0); MEAN CORPUSCULAR VOLUME 92.3 fl (80.0-96.0); PLATELET COUNT, AUTOMATED 114 10^3/uL (150-450); RED BLOOD COUNT 3.39 10^6/uL (4.00-5.40)
[2023-10-25 08:44] LABS: BLOOD UREA NITROGEN 129 MG/DL (9-23); CALCIUM LEVEL 8.4 MG/DL (8.3-10.6); CARBON DIOXIDE LEVEL 33 MMOL/L (20-31); CHLORIDE LEVEL 98 MMOL/L (98-107); CREATININE FOR GFR 3.57 MG/DL (0.55-1.30); GLOMERULAR FILTRATION RATE 13.4 (>39); GLUCOSE, FASTING 222 MG/DL (74-106); POTASSIUM SERUM 4.4 MMOL/L (3.5-5.1); SODIUM LEVEL 136 MMOL/L (136-145)
[2023-10-25 08:47] LABS: TOTAL 25(OH) VITAMIN D 55.1 NG/ML (20.0-100.0)
[2023-10-25] MEDS: DARBEPOETIN 100MCG/0.5ML *NON-DIALYSIS* SYRINGE SC SCH (09:00)
[2023-10-25 11:21] LABS: HEPATITIS B SURFACE ANTIBODY NEGATIVE (POSITIVE)
[2023-10-25 11:34] LABS: HEPATITIS B SURFACE ANTIGEN NEGATIVE (NEGATIVE)
[2023-10-25 11:54] LABS: HEPATITIS B CORE ANTIBODY IGM NEGATIVE (NEGATIVE)
[2023-10-25 11:55] LABS: HEPATITIS C VIRUS ABY INDEX 0.04 INDEX (<0.8)
[2023-10-25] MEDS ORDERED: BISACODYL 10MG SUPP PR PRN (12:10)
[2023-10-25] MEDS: LEVEMIR (INSULIN DETEMIR) 1 UNITS/0.01ML SC SCH (13:39)
[2023-10-25] MEDS ORDERED: fentaNYL 100 MCG/2 ML INJECTION As Ordered ONE (15:07)
[2023-10-25] MEDS ORDERED: HEPARIN 1,000UNITS/ML 10ML VIAL (FOR RADIOLOGY & DIALYSIS ONLY) As Ordered ONE (15:08)
[2023-10-25] MEDS ORDERED: LIDOCAINE W/EPINEPHRINE 1% 20ML VIAL As Ordered ONE (15:08)
[2023-10-25] MEDS ORDERED: MIDAZOLAM INJ 2MG/2ML VIAL As Ordered ONE (15:08)
[2023-10-25] MEDS ORDERED: LIDOCAINE 1% MDV 20ML VIAL As Ordered ONE (15:08)
[2023-10-26 03:50] VITALS: BP 132/60; TEMP 96.9; O2SAT 98
[2023-10-26] MEDS ORDERED: HEPARIN 1,000UNITS/ML 10ML VIAL (FOR RADIOLOGY & DIALYSIS ONLY) XX SCH (06:45)
[2023-10-26] MEDS ORDERED: SODIUM CHLORIDE 0.9% 1000ML IV PRN (06:45)
[2023-10-26 06:54] LABS: HEMATOCRIT 30.5 % (36.0-47.0); HEMOGLOBIN 9.3 g/dl (12.0-15.5); MEAN CORPUSCULAR HGB CONC 30.5 g/dl (32.0-36.5); MEAN CORPUSCULAR VOLUME 91.9 fl (80.0-96.0); PLATELET COUNT, AUTOMATED 101 10^3/uL (150-450); RED BLOOD COUNT 3.32 10^6/uL (4.00-5.40); WHITE BLOOD COUNT 5.9 10^3/uL (4.0-10.0)
[2023-10-26 07:19] LABS: CALCIUM LEVEL 8.2 MG/DL (8.3-10.6); CREATININE FOR GFR 3.44 MG/DL (0.55-1.30); GLOMERULAR FILTRATION RATE 13.9 (>39)
[2023-10-26 07:23] VITALS: BP 130/60; TEMP 97.1; O2SAT 99
[2023-10-26] MEDS: HEPARIN 1,000UNITS/ML 10ML VIAL (FOR RADIOLOGY & DIALYSIS ONLY) IV PRN (09:47)
[2023-10-26 11:50] VITALS: BP 114/56; TEMP 97; O2SAT 97
[2023-10-26 15:39] VITALS: BP 132/63; TEMP 97.6; O2SAT 98
[2023-10-26 20:00] VITALS: BP 127/60; TEMP 96.6; TEMP 97.6; O2SAT 99
[2023-10-26 21:00] VITALS: O2SAT 96
[2023-10-27] VITALS (9 sets, daily range): BP systolic 124–147; BP diastolic 59–71; TEMP 96.8–97.3; O2SAT 95–99
[2023-10-27 05:49] LABS: HEMATOCRIT 31.8 % (36.0-47.0); HEMOGLOBIN 9.3 g/dl (12.0-15.5); MEAN CORPUSCULAR HEMOGLOBIN 27.5 pg (27.0-33.0); MEAN CORPUSCULAR HGB CONC 29.2 g/dl (32.0-36.5); MEAN CORPUSCULAR VOLUME 94.1 fl (80.0-96.0); PLATELET COUNT, AUTOMATED 101 10^3/uL (150-450); RED BLOOD COUNT 3.38 10^6/uL (4.00-5.40); WHITE BLOOD COUNT 6.5 10^3/uL (4.0-10.0)
[2023-10-27 06:16] LABS: CALCIUM LEVEL 8.6 MG/DL (8.3-10.6); GLOMERULAR FILTRATION RATE 16.3 (>39); POTASSIUM SERUM 4.2 MMOL/L (3.5-5.1)
[2023-10-27] MEDS: ONDANSETRON 4MG 2ML VIAL IV ONE (08:35)
[2023-10-27] MEDS: FUROSEMIDE 100MG/10ML VIAL IV SCH (10:46)
[2023-10-28 01:03] VITALS: BP 118/58
[2023-10-28 03:45] VITALS: BP 128/60; TEMP 97.4; O2SAT 96
[2023-10-28] MEDS: ACETAMINOPHEN TAB 650MG DOSE (2X325MG) PO ONE (03:48)
[2023-10-28] MEDS ORDERED: SODIUM CHLORIDE 0.9% 1000ML IV PRN (06:00)
[2023-10-28] MEDS ORDERED: HEPARIN 1,000UNITS/ML 10ML VIAL (FOR RADIOLOGY & DIALYSIS ONLY) XX SCH (06:00)
[2023-10-28 06:35] LABS: CALCIUM LEVEL 8.4 MG/DL (8.3-10.6); CREATININE FOR GFR 3.34 MG/DL (0.55-1.30); GLOMERULAR FILTRATION RATE 14.4 (>39); POTASSIUM SERUM 4.2 MMOL/L (3.5-5.1)
[2023-10-28 06:39] LABS: HEMATOCRIT 31.8 % (36.0-47.0); HEMOGLOBIN 9.3 g/dl (12.0-15.5); MEAN CORPUSCULAR HEMOGLOBIN 27.7 pg (27.0-33.0); MEAN CORPUSCULAR HGB CONC 29.2 g/dl (32.0-36.5); MEAN CORPUSCULAR VOLUME 94.6 fl (80.0-96.0); RED BLOOD COUNT 3.36 10^6/uL (4.00-5.40); WHITE BLOOD COUNT 6.5 10^3/uL (4.0-10.0)
[2023-10-28 07:10] LABS: PLATELET COUNT, AUTOMATED 94 10^3/uL (150-450)
[2023-10-28 08:03] VITALS: BP 128/58; TEMP 97.6; O2SAT 99
[2023-10-28] MEDS: CEFDINIR 300 MG CAP (OMNICEF) PO ONE (09:01)
[2023-10-28 12:00] VITALS: BP 128/66; TEMP 97; O2SAT 95
[2023-10-28] MEDS: HEPARIN 1,000UNITS/ML 10ML VIAL (FOR RADIOLOGY & DIALYSIS ONLY) IV PRN (13:18)
[2023-10-28 16:07] VITALS: BP 130/62; TEMP 97; O2SAT 95
[2023-10-28] MEDS: CEFDINIR 300 MG CAP (OMNICEF) PO SCH (17:57)
[2023-10-29 03:00] VITALS: BP 129/64; TEMP 96.9; O2SAT 96
[2023-10-29] MEDS ORDERED: HEPARIN 1,000UNITS/ML 10ML VIAL (FOR RADIOLOGY & DIALYSIS ONLY) IV PRN (06:00)
[2023-10-29] MEDS ORDERED: SODIUM CHLORIDE 0.9% 1000ML IV PRN (06:00)
[2023-10-29 06:54] LABS: HEMATOCRIT 32.9 % (36.0-47.0); HEMOGLOBIN 9.8 g/dl (12.0-15.5); MEAN CORPUSCULAR HEMOGLOBIN 28.2 pg (27.0-33.0); MEAN CORPUSCULAR HGB CONC 29.8 g/dl (32.0-36.5); MEAN CORPUSCULAR VOLUME 94.8 fl (80.0-96.0); RED BLOOD COUNT 3.47 10^6/uL (4.00-5.40); WHITE BLOOD COUNT 7.5 10^3/uL (4.0-10.0)
[2023-10-29 06:59] LABS: PLATELET COUNT, AUTOMATED 83 10^3/uL (150-450)
[2023-10-29 07:15] LABS: CALCIUM LEVEL 8.8 MG/DL (8.3-10.6); CREATININE FOR GFR 2.79 MG/DL (0.55-1.30); GLOMERULAR FILTRATION RATE 17.8 (>39)
[2023-10-29 07:33] VITALS: BP 147/67; TEMP 97.7; O2SAT 96
[2023-10-29] MEDS: ONDANSETRON 4MG 2ML VIAL IV PRN (08:16)
[2023-10-29 12:19] VITALS: BP 144/71; TEMP 97.6; O2SAT 98
[2023-10-29 12:20] LABS: HEPATITIS B SURFACE ANTIBODY NEGATIVE (POSITIVE)
[2023-10-29 12:32] LABS: HEPATITIS B SURFACE ANTIGEN NEGATIVE (NEGATIVE)
[2023-10-29 12:53] LABS: HEPATITIS B CORE ANTIBODY IGM NEGATIVE (NEGATIVE); HEPATITIS C VIRUS ABY INDEX 0.03 INDEX (<0.8)
[2023-10-29] MEDS: HEPARIN 1,000UNITS/ML 10ML VIAL (FOR RADIOLOGY & DIALYSIS ONLY) XX SCH (14:07)
[2023-10-29 17:02] VITALS: BP 136/61; TEMP 97.1; O2SAT 95
[2023-10-29 18:33] LABS: URINE STREP PNEUMONIAE ANTIGEN NOT DETECTED (NOT DETECT)
[2023-10-29 20:00] VITALS: BP 137/63; TEMP 96.9; O2SAT 99
[2023-10-30] MEDS ORDERED: HEPARIN 1,000UNITS/ML 10ML VIAL (FOR RADIOLOGY & DIALYSIS ONLY) XX SCH (00:30)
[2023-10-30] MEDS ORDERED: SODIUM CHLORIDE 0.9% 1000ML IV PRN (00:30)
[2023-10-30 04:00] VITALS: BP 117/58; TEMP 97.1; O2SAT 100
[2023-10-30 07:10] LABS: BASO % 0.5 % (0.0-1.0); EOS # 0.1 10^3/uL (0.0-0.5); EOS % 2.3 % (0.0-3.0); HEMATOCRIT 34.4 % (36.0-47.0); HEMOGLOBIN 9.9 g/dl (12.0-15.5); LYMPH # 0.5 10^3/uL (1.5-5.0); LYMPH % 7.6 % (24.0-44.0); MEAN CORPUSCULAR HGB CONC 28.8 g/dl (32.0-36.5); MEAN CORPUSCULAR VOLUME 97.5 fl (80.0-96.0); MONO # 0.7 10^3/uL (0.0-0.8); MONO % 10.8 % (2.0-8.0); NEUTROPHILS # 4.9 10^3/uL (1.5-8.5); NEUTROPHILS % 78.3 % (36.0-66.0); RED BLOOD COUNT 3.53 10^6/uL (4.00-5.40); WHITE BLOOD COUNT 6.2 10^3/uL (4.0-10.0)
[2023-10-30 07:11] LABS: PLATELET COUNT, AUTOMATED 75 10^3/uL (150-450)
[2023-10-30 07:31] LABS: CALCIUM LEVEL 8.8 MG/DL (8.3-10.6); CREATININE FOR GFR 2.29 MG/DL (0.55-1.30); GLOMERULAR FILTRATION RATE 22.3 (>39); POTASSIUM SERUM 4.2 MMOL/L (3.5-5.1)
[2023-10-30 07:52] VITALS: BP 124/60; TEMP 96.7; O2SAT 100
[2023-10-30] MEDS: HEPARIN 1,000UNITS/ML 10ML VIAL (FOR RADIOLOGY & DIALYSIS ONLY) IV PRN (13:39)
[2023-10-30 16:56] VITALS: BP 153/84; TEMP 97.5; O2SAT 96
[2023-10-30 20:00] VITALS: BP 147/84; TEMP 97.9; O2SAT 93
[2023-10-30 23:34] LABS: CALCIUM LEVEL 8.7 MG/DL (8.3-10.6); CK-MB VALUE MASS 1.5 NG/ML (<3.6); CREATININE FOR GFR 2.96 MG/DL (0.55-1.30); GLOMERULAR FILTRATION RATE 16.6 (>39); MAGNESIUM LEVEL 1.9 MG/DL (1.8-2.4); MB/CK RELATIVE INDEX 5.55 (< OR =4); PHOSPHORUS LEVEL 4.1 MG/DL (2.4-5.1); POTASSIUM SERUM 4.2 MMOL/L (3.5-5.1)
[2023-10-31] MEDS ORDERED: SODIUM CHLORIDE 0.9% 1000ML IV PRN (01:00)
[2023-10-31] MEDS ORDERED: HEPARIN 1,000UNITS/ML 10ML VIAL (FOR RADIOLOGY & DIALYSIS ONLY) IV PRN (01:00)
[2023-10-31 04:00] VITALS: BP 108/56; TEMP 97.7; O2SAT 99
[2023-10-31 07:44] LABS: CALCIUM LEVEL 8.6 MG/DL (8.3-10.6); CREATININE FOR GFR 3.27 MG/DL (0.55-1.30); GLOMERULAR FILTRATION RATE 14.8 (>39); POTASSIUM SERUM 4.1 MMOL/L (3.5-5.1)
[2023-10-31] MEDS: SENOKOT S TAB PO SCH (08:40)
[2023-10-31] MEDS: BISACODYL 10MG SUPP PR SCH (08:51)
[2023-10-31 11:37] VITALS: BP 130/62; TEMP 97.3; O2SAT 95
[2023-10-31] MEDS ORDERED: ISOVUE-370 76% 100ML VIAL As Ordered ONE (14:17)
[2023-10-31] MEDS: HEPARIN 1,000UNITS/ML 10ML VIAL (FOR RADIOLOGY & DIALYSIS ONLY) XX SCH (14:47)
[2023-10-31 16:02] VITALS: BP 131/63; TEMP 97.5; O2SAT 95
[2023-10-31 20:40] VITALS: BP 126/48; TEMP 97.5; O2SAT 93
[2023-10-31 21:33] VITALS: BP 128/61
[2023-10-31] MEDS: APIXABAN 2.5 MG TAB (ELIQUIS) PO SCH (21:34)
[2023-11-01 03:10] VITALS: BP 126/60; TEMP 97.5; O2SAT 99
[2023-11-01 07:00] LABS: CALCIUM LEVEL 8.8 MG/DL (8.3-10.6); CREATININE FOR GFR 2.68 MG/DL (0.55-1.30); GLOMERULAR FILTRATION RATE 18.6 (>39); POTASSIUM SERUM 4.3 MMOL/L (3.5-5.1)
[2023-11-01 12:00] VITALS: BP 131/60; TEMP 97.9; O2SAT 97
[2023-11-01] MEDS: ACETAMINOPHEN 500 MG TAB PO PRN (16:39)
[2023-11-01 21:10] VITALS: BP 129/60; TEMP 97.5; O2SAT 99
[2023-11-01] MEDS: PERCOCET 5MG/325MG TAB PO PRN (22:46)
[2023-11-01] MEDS: LIDOCAINE 5% (LIDODERM) PATCH TD SCH (22:46)
[2023-11-02 03:50] VITALS: BP 136/85; TEMP 97.5; O2SAT 99
[2023-11-02] MEDS ORDERED: HEPARIN 1,000UNITS/ML 10ML VIAL (FOR RADIOLOGY & DIALYSIS ONLY) XX SCH (06:00)
[2023-11-02] MEDS ORDERED: LIDOCAINE 1% SDV 5ML VIAL SC PRN (06:00)
[2023-11-02] MEDS ORDERED: SODIUM CHLORIDE 0.9% 1000ML IV PRN (06:00)
[2023-11-02 06:51] LABS: CALCIUM LEVEL 8.5 MG/DL (8.3-10.6); CREATININE FOR GFR 3.68 MG/DL (0.55-1.30); GLOMERULAR FILTRATION RATE 12.9 (>39); MAGNESIUM LEVEL 1.9 MG/DL (1.8-2.4); POTASSIUM SERUM 4.1 MMOL/L (3.5-5.1)
[2023-11-02 06:56] LABS: URIC ACID 3.5 MG/DL (3.1-7.8)
[2023-11-02 08:38] LABS: BASO # 0.1 10^3/uL (0.0-0.2); BASO % 0.8 % (0.0-1.0); EOS # 0.2 10^3/uL (0.0-0.5); EOS % 2.3 % (0.0-3.0); HEMATOCRIT 36.8 % (36.0-47.0); HEMOGLOBIN 10.5 g/dl (12.0-15.5); LYMPH # 0.5 10^3/uL (1.5-5.0); LYMPH % 7.8 % (24.0-44.0); MEAN CORPUSCULAR HEMOGLOBIN 28.2 pg (27.0-33.0); MEAN CORPUSCULAR HGB CONC 28.5 g/dl (32.0-36.5); MEAN CORPUSCULAR VOLUME 98.9 fl (80.0-96.0); MONO # 0.7 10^3/uL (0.0-0.8); MONO % 10.6 % (2.0-8.0); RED BLOOD COUNT 3.72 10^6/uL (4.00-5.40); WHITE BLOOD COUNT 6.4 10^3/uL (4.0-10.0)
[2023-11-02 08:39] LABS: PLATELET COUNT, AUTOMATED 76 10^3/uL (150-450)
[2023-11-02] MEDS ORDERED: LIDOCAINE 5% (LIDODERM) PATCH TD SCH (11:05)
[2023-11-02] MEDS: DICLOFENAC EPOLAMINE 1.3% PATCH TOP SCH (11:33)
[2023-11-02 12:00] VITALS: BP 136/63; TEMP 97.5; O2SAT 96
[2023-11-02] MEDS: HEPARIN 1,000UNITS/ML 10ML VIAL (FOR RADIOLOGY & DIALYSIS ONLY) IV PRN (15:32)
[2023-11-02] MEDS: FAMOTIDINE 20 MG TAB PO SCH (17:47)
[2023-11-02 20:07] VITALS: BP 132/63; TEMP 97.2; O2SAT 97
[2023-11-02] MEDS: LIDOCAINE 5% (LIDODERM) PATCH TD SCH (21:37)
[2023-11-02 22:00] VITALS: O2SAT 95
[2023-11-03 03:45] VITALS: BP 123/62; TEMP 97.3; O2SAT 99
[2023-11-03 06:56] LABS: CALCIUM LEVEL 8.1 MG/DL (8.3-10.6); CREATININE FOR GFR 3.22 MG/DL (0.55-1.30); MAGNESIUM LEVEL 1.9 MG/DL (1.8-2.4)
[2023-11-03 12:00] VITALS: BP 139/73; TEMP 97.7; O2SAT 96
[2023-11-03 19:59] VITALS: BP 135/59; TEMP 97.3; O2SAT 100
[2023-11-04 04:20] VITALS: BP 134/59; TEMP 97.3; O2SAT 100
[2023-11-04] MEDS ORDERED: SODIUM CHLORIDE 0.9% 1000ML IV PRN (06:00)
[2023-11-04] MEDS ORDERED: HEPARIN 1,000UNITS/ML 10ML VIAL (FOR RADIOLOGY & DIALYSIS ONLY) XX SCH (06:00)
[2023-11-04] MEDS ORDERED: LIDOCAINE 1% SDV 5ML VIAL SC PRN (06:00)
[2023-11-04 06:33] LABS: BASO # 0.1 10^3/uL (0.0-0.2); BASO % 0.8 % (0.0-1.0); EOS # 0.2 10^3/uL (0.0-0.5); EOS % 2.3 % (0.0-3.0); HEMATOCRIT 35.7 % (36.0-47.0); HEMOGLOBIN 10.4 g/dl (12.0-15.5); LYMPH # 0.6 10^3/uL (1.5-5.0); LYMPH % 8.6 % (24.0-44.0); MEAN CORPUSCULAR HEMOGLOBIN 28.9 pg (27.0-33.0); MEAN CORPUSCULAR HGB CONC 29.1 g/dl (32.0-36.5); MEAN CORPUSCULAR VOLUME 99.2 fl (80.0-96.0); MONO # 0.7 10^3/uL (0.0-0.8); MONO % 10.9 % (2.0-8.0); NEUTROPHILS % 77.1 % (36.0-66.0); WHITE BLOOD COUNT 6.5 10^3/uL (4.0-10.0)
[2023-11-04 06:37] LABS: PLATELET COUNT, AUTOMATED 79 10^3/uL (150-450)
[2023-11-04 06:56] LABS: CREATININE FOR GFR 4.63 MG/DL (0.55-1.30); GLOMERULAR FILTRATION RATE 9.9 (>39); POTASSIUM SERUM 4.2 MMOL/L (3.5-5.1)
[2023-11-04] MEDS: VANICREAM MOISTURIZING SKIN CREAM 113GM TUBE TOP SCH (09:00)
[2023-11-04] MEDS: HEPARIN 1,000UNITS/ML 10ML VIAL (FOR RADIOLOGY & DIALYSIS ONLY) IV PRN (10:50)
[2023-11-04 12:00] VITALS: BP 129/55; TEMP 97.3; O2SAT 100
[2023-11-04 20:00] VITALS: BP 165/66; TEMP 97.7; O2SAT 94
[2023-11-05 04:00] VITALS: BP 160/65; TEMP 97.3; O2SAT 100
[2023-11-05] MEDS ORDERED: HEPARIN 1,000UNITS/ML 10ML VIAL (FOR RADIOLOGY & DIALYSIS ONLY) IV PRN (06:00)
[2023-11-05] MEDS ORDERED: LIDOCAINE 1% SDV 5ML VIAL SC PRN (06:00)
[2023-11-05] MEDS ORDERED: SODIUM CHLORIDE 0.9% 1000ML IV PRN (06:00)
[2023-11-05 06:21] LABS: CALCIUM LEVEL 7.6 MG/DL (8.3-10.6); CREATININE FOR GFR 5.25 MG/DL (0.55-1.30); GLOMERULAR FILTRATION RATE 8.6 (>39)
[2023-11-05] MEDS: HEPARIN 1,000UNITS/ML 10ML VIAL (FOR RADIOLOGY & DIALYSIS ONLY) XX SCH (11:05)
[2023-11-05 12:20] VITALS: BP 144/61; TEMP 97.3; O2SAT 97
[2023-11-05 20:00] VITALS: BP 133/54; TEMP 97.5; O2SAT 93
[2023-11-06 04:00] VITALS: BP 127/52; TEMP 97.3; O2SAT 98
[2023-11-06] MEDS ORDERED: SODIUM CHLORIDE 0.9% 1000ML IV PRN (06:00)
[2023-11-06] MEDS ORDERED: LIDOCAINE 1% SDV 5ML VIAL SC PRN (06:00)
[2023-11-06] MEDS ORDERED: HEPARIN 1,000UNITS/ML 10ML VIAL (FOR RADIOLOGY & DIALYSIS ONLY) IV PRN (06:00)
[2023-11-06 08:02] LABS: CALCIUM LEVEL 7.8 MG/DL (8.3-10.6); CREATININE FOR GFR 4.02 MG/DL (0.55-1.30); GLOMERULAR FILTRATION RATE 11.6 (>39); POTASSIUM SERUM 3.6 MMOL/L (3.5-5.1)
[2023-11-06 08:03] LABS: BASO # 0.1 10^3/uL (0.0-0.2); BASO % 0.9 % (0.0-1.0); EOS # 0.2 10^3/uL (0.0-0.5); EOS % 2.6 % (0.0-3.0); HEMATOCRIT 34.7 % (36.0-47.0); HEMOGLOBIN 10.3 g/dl (12.0-15.5); LYMPH # 0.5 10^3/uL (1.5-5.0); LYMPH % 9.1 % (24.0-44.0); MEAN CORPUSCULAR HEMOGLOBIN 29.1 pg (27.0-33.0); MEAN CORPUSCULAR HGB CONC 29.7 g/dl (32.0-36.5); MONO # 0.8 10^3/uL (0.0-0.8); MONO % 13.2 % (2.0-8.0); NEUTROPHILS # 4.3 10^3/uL (1.5-8.5); NEUTROPHILS % 73.9 % (36.0-66.0); RED BLOOD COUNT 3.54 10^6/uL (4.00-5.40); WHITE BLOOD COUNT 5.9 10^3/uL (4.0-10.0)
[2023-11-06 08:05] LABS: PLATELET COUNT, AUTOMATED 79 10^3/uL (150-450)
[2023-11-06] MEDS: HEPARIN 1,000UNITS/ML 10ML VIAL (FOR RADIOLOGY & DIALYSIS ONLY) XX SCH (12:12)
[2023-11-06 20:49] VITALS: BP 122/47; TEMP 98.1; O2SAT 95
[2023-11-07 04:00] VITALS: BP 124/48; TEMP 97; O2SAT 98
[2023-11-07] MEDS ORDERED: SODIUM CHLORIDE 0.9% 1000ML IV PRN (06:00)
[2023-11-07] MEDS ORDERED: HEPARIN 1,000UNITS/ML 10ML VIAL (FOR RADIOLOGY & DIALYSIS ONLY) IV PRN (06:00)
[2023-11-07 06:09] LABS: BASO # 0.1 10^3/uL (0.0-0.2); BASO % 0.8 % (0.0-1.0); EOS # 0.1 10^3/uL (0.0-0.5); HEMATOCRIT 35.1 % (36.0-47.0); HEMOGLOBIN 10.4 g/dl (12.0-15.5); LYMPH # 0.5 10^3/uL (1.5-5.0); LYMPH % 8.6 % (24.0-44.0); MEAN CORPUSCULAR HEMOGLOBIN 29.2 pg (27.0-33.0); MEAN CORPUSCULAR HGB CONC 29.6 g/dl (32.0-36.5); MEAN CORPUSCULAR VOLUME 98.6 fl (80.0-96.0); MONO # 0.7 10^3/uL (0.0-0.8); MONO % 12.1 % (2.0-8.0); NEUTROPHILS # 4.5 10^3/uL (1.5-8.5); NEUTROPHILS % 76.2 % (36.0-66.0); RED BLOOD COUNT 3.56 10^6/uL (4.00-5.40)
[2023-11-07 06:27] LABS: CALCIUM LEVEL 7.9 MG/DL (8.3-10.6); CREATININE FOR GFR 3.44 MG/DL (0.55-1.30); GLOMERULAR FILTRATION RATE 13.9 (>39); MAGNESIUM LEVEL 1.9 MG/DL (1.8-2.4); POTASSIUM SERUM 3.4 MMOL/L (3.5-5.1)
[2023-11-07 06:56] LABS: PLATELET COUNT, AUTOMATED 73 10^3/uL (150-450)
[2023-11-07 06:57] LABS: ANISOCYTOSIS 2+; HYPOCHROMASIA 2+; PLATELET ESTIMATE DECREASED (NORMAL)
[2023-11-07 07:55] VITALS: O2SAT 94
[2023-11-07] MEDS: HEPARIN 1,000UNITS/ML 10ML VIAL (FOR RADIOLOGY & DIALYSIS ONLY) XX SCH (08:51)
[2023-11-07 12:00] VITALS: BP 126/69; TEMP 97.5; O2SAT 97
[2023-11-07 20:00] VITALS: BP 113/44; TEMP 97.7; O2SAT 96
[2023-11-08 04:00] VITALS: BP 133/63; TEMP 97.2; O2SAT 98
[2023-11-08 07:23] LABS: CALCIUM LEVEL 7.7 MG/DL (8.3-10.6); CREATININE FOR GFR 3.03 MG/DL (0.55-1.30); GLOMERULAR FILTRATION RATE 16.1 (>39); MAGNESIUM LEVEL 1.9 MG/DL (1.8-2.4); POTASSIUM SERUM 3.2 MMOL/L (3.5-5.1)
[2023-11-08] MEDS ORDERED: LIDOCAINE 1% SDV 5ML VIAL SC PRN (07:55)
[2023-11-08] MEDS ORDERED: HEPARIN 1,000UNITS/ML 10ML VIAL (FOR RADIOLOGY & DIALYSIS ONLY) IV PRN (07:55)
[2023-11-08] MEDS ORDERED: SODIUM CHLORIDE 0.9% 1000ML IV PRN (07:55)
[2023-11-08] MEDS: HEPARIN 1,000UNITS/ML 10ML VIAL (FOR RADIOLOGY & DIALYSIS ONLY) XX SCH (09:14)
[2023-11-08 12:00] VITALS: BP 143/45; TEMP 97.5; O2SAT 97
[2023-11-08 20:00] VITALS: BP 139/48; TEMP 97.5; O2SAT 97
[2023-11-08 23:45] VITALS: O2SAT 97
[2023-11-09 04:00] VITALS: BP 129/54; TEMP 97.5; O2SAT 96
[2023-11-09 06:47] VITALS: O2SAT 96
[2023-11-09 07:06] LABS: CALCIUM LEVEL 7.8 MG/DL (8.3-10.6); CREATININE FOR GFR 2.92 MG/DL (0.55-1.30); GLOMERULAR FILTRATION RATE 16.8 (>39); MAGNESIUM LEVEL 1.9 MG/DL (1.8-2.4); POTASSIUM SERUM 4.5 MMOL/L (3.5-5.1)
[2023-11-09] MEDS ORDERED: SODIUM CHLORIDE 0.9% 1000ML IV PRN (07:20)
[2023-11-09] MEDS ORDERED: HEPARIN 1,000UNITS/ML 10ML VIAL (FOR RADIOLOGY & DIALYSIS ONLY) IV PRN (07:20)
[2023-11-09] MEDS ORDERED: MIDODRINE 5 MG TAB PO ONE (09:00)
[2023-11-09] MEDS: HEPARIN 1,000UNITS/ML 10ML VIAL (FOR RADIOLOGY & DIALYSIS ONLY) XX SCH (10:47)
[2023-11-09 12:16] VITALS: BP 121/64; TEMP 97.7; O2SAT 98
[2023-11-09] MEDS: MAALOX 30 ML SUSP *UDC PO ONE (17:48)
[2023-11-09 20:00] VITALS: BP 136/61; TEMP 97.7; O2SAT 95
[2023-11-10 04:00] VITALS: BP 119/55; TEMP 97.7; O2SAT 95
[2023-11-10 07:33] LABS: CALCIUM LEVEL 8.1 MG/DL (8.3-10.6); CREATININE FOR GFR 4.05 MG/DL (0.55-1.30); GLOMERULAR FILTRATION RATE 11.6 (>39); MAGNESIUM LEVEL 1.9 MG/DL (1.8-2.4)
[2023-11-10 12:00] VITALS: BP 139/62; TEMP 97.5; O2SAT 100
[2023-11-10] MEDS: LEVEMIR (INSULIN DETEMIR) 1 UNITS/0.01ML SC ONE (15:42)
[2023-11-10 20:07] VITALS: BP 137/80; TEMP 97.7; O2SAT 99
[2023-11-10] MEDS: LEVEMIR (INSULIN DETEMIR) 1 UNITS/0.01ML SC SCH (20:26)
[2023-11-11] MEDS ORDERED: HEPARIN 1,000UNITS/ML 10ML VIAL (FOR RADIOLOGY & DIALYSIS ONLY) XX SCH (03:45)
[2023-11-11] MEDS ORDERED: SODIUM CHLORIDE 0.9% 1000ML IV PRN (03:45)
[2023-11-11 04:25] VITALS: BP 123/62; TEMP 97.7; O2SAT 99
[2023-11-11] MEDS: LEVEMIR (INSULIN DETEMIR) 1 UNITS/0.01ML SC SCH (07:16)
[2023-11-11 08:13] LABS: CALCIUM LEVEL 8.3 MG/DL (8.3-10.6); CREATININE FOR GFR 5.02 MG/DL (0.55-1.30); POTASSIUM SERUM 4.5 MMOL/L (3.5-5.1)
[2023-11-11] MEDS ORDERED: CEPACOL LOZENGE PO PRN (08:45)
[2023-11-11] MEDS: CHLORASEPTIC SPRAY MT ONE (11:00)
[2023-11-11] MEDS: CHLORASEPTIC SPRAY MT PRN (12:03)
[2023-11-11] MEDS: HEPARIN 1,000UNITS/ML 10ML VIAL (FOR RADIOLOGY & DIALYSIS ONLY) IV PRN (13:15)
[2023-11-11 20:20] VITALS: BP_SYST 122; BP_SYST 144; BP_DIAS 53; BP_DIAS 74; TEMP 97.6; TEMP 97.7; O2SAT 96; O2SAT 97
[2023-11-12 03:20] VITALS: BP 132/55; TEMP 97.5; O2SAT 96
[2023-11-12 07:15] LABS: CALCIUM LEVEL 8.4 MG/DL (8.3-10.6); CREATININE FOR GFR 3.54 MG/DL (0.55-1.30); GLOMERULAR FILTRATION RATE 13.5 (>39); MAGNESIUM LEVEL 1.9 MG/DL (1.8-2.4); POTASSIUM SERUM 4.2 MMOL/L (3.5-5.1)
[2023-11-12 08:23] VITALS: BP 132/53
[2023-11-12] MEDS ORDERED: LIDO5TD TD (11:06)
[2023-11-12] MEDS ORDERED: DICL1PAT6 TOP (11:06)
[2023-11-12] MEDS ORDERED: VANI1CRE5 TOP (11:06)
[2023-11-12] MEDS ORDERED: ELIQ2.5T PO (11:06)
[2023-11-12] MEDS ORDERED: FAMO20TA PO (11:06)
[2023-11-12] MEDS ORDERED: SENN-52 PO (11:06)
[2023-11-12 12:00] VITALS: BP 134/54; TEMP 97.5; O2SAT 98
== END 2023-11-12 13:43 | DRG 291 ==
LOC: EDBD 10:25 → M ED 10:25 → M ED INP 12:37 → M PCU 20:35 → M MSPAV 10-30 15:01
PROVIDERS: ADMIT General Practice; ATTEND Internal Medicine Nephrology
PROC: 02H633Z Insertion of Infusion Device into Right Atrium, Percutaneous Approach (ICD-10-PCS; 2023-10-25)
PROC: 0JH63XZ Insertion of Tunneled Vascular Access Device into Chest Subcutaneous Tissue and Fascia, Percutaneous Approach (ICD-10-PCS; principal; 2023-10-25 15:00)
PROC: 5A1D70Z Performance of Urinary Filtration, Intermittent, Less than 6 Hours Per Day (ICD-10-PCS; 2023-10-26)
DX: I13.2 Hypertensive heart and chronic kidney disease with heart failure and with stage 5 chronic kidney disease, or end stage renal disease (principal); I50.23 Acute on chronic systolic (congestive) heart failure; J15.69 Pneumonia due to other Gram-negative bacteria; N18.6 End stage renal disease; J96.11 Chronic respiratory failure with hypoxia; Z68.43 Body mass index [BMI] 50.0-59.9, adult; N17.9 Acute kidney failure, unspecified; I47.20 Ventricular tachycardia, unspecified; E87.1 Hypo-osmolality and hyponatremia; E11.22 Type 2 diabetes mellitus with diabetic chronic kidney disease; I25.10 Atherosclerotic heart disease of native coronary artery without angina pectoris; E78.5 Hyperlipidemia, unspecified; K21.9 Gastro-esophageal reflux disease without esophagitis; D63.1 Anemia in chronic kidney disease; E03.9 Hypothyroidism, unspecified; Z66 Do not resuscitate; E66.01 Morbid (severe) obesity due to excess calories; D69.6 Thrombocytopenia, unspecified; R91.1 Solitary pulmonary nodule; G47.33 Obstructive sleep apnea (adult) (pediatric); I25.2 Old myocardial infarction; K27.9 Peptic ulcer, site unspecified, unspecified as acute or chronic, without hemorrhage or perforation; M25.561 Pain in right knee; I25.5 Ischemic cardiomyopathy; G89.29 Other chronic pain; I34.0 Nonrheumatic mitral (valve) insufficiency; I27.20 Pulmonary hypertension, unspecified; I87.2 Venous insufficiency (chronic) (peripheral); I89.0 Lymphedema, not elsewhere classified; Z95.5 Presence of coronary angioplasty implant and graft; Z79.82 Long term (current) use of aspirin; Z79.4 Long term (current) use of insulin; Z79.890 Hormone replacement therapy; Z79.899 Other long term (current) drug therapy; Z88.2 Allergy status to sulfonamides; Z87.891 Personal history of nicotine dependence; Z99.81 Dependence on supplemental oxygen; Z99.2 Dependence on renal dialysis

== ENCOUNTER → 2023-10-23 | Outpatient (REF) | payer MEDICAID ==
[~2023-10-23] MED LIST: ACET-683 PO; ACET32TAB PO; ALLO100T PO; ASPI81TA26 PO; ASPI81TA86 PO; ATOR1TAB21 PO; ATOR40TA75 PO; BISA10SU4 PR; CALC250T PO; CARV12.5 PO; CARV6.25 PO; CVS1CAP2 PO; FLEEENE12 PR; FURO10EL PO; GLUC1KIT IM; HYDR50TA46 PO; INSUH10VL SC; IRON18TA PO; LANTINJ4 SC; LEVO125T4 PO; MAGN400C2 PO; MELA5TAB58 PO; METO25TA PO; MOM30SS2 PO; PANT-23 PO; PEPC1TAB5 PO; POTA20PW PO; SYNT100T PO; SYNT125T PO; TORS100T PO; TORS20TA2 PO
[2023-10-23 09:48] LABS: HEMOGLOBIN 9.4 g/dl (12.0-15.5); MEAN CORPUSCULAR HEMOGLOBIN 26.8 pg (27.0-33.0); MEAN CORPUSCULAR HGB CONC 29.4 g/dl (32.0-36.5); MEAN CORPUSCULAR VOLUME 91.2 fl (80.0-96.0); PLATELET COUNT, AUTOMATED 133 10^3/uL (150-450); RED BLOOD COUNT 3.51 10^6/uL (4.00-5.40); WHITE BLOOD COUNT 6.2 10^3/uL (4.0-10.0)
[2023-10-23 10:10] LABS: CALCIUM LEVEL 8.4 MG/DL (8.3-10.6); CREATININE FOR GFR 3.44 MG/DL (0.55-1.30); GLOMERULAR FILTRATION RATE 13.9 (>39); POTASSIUM SERUM 3.9 MMOL/L (3.5-5.1)
== END ==
PROVIDERS: ATTEND Internal Medicine
DX: I50.9 Heart failure, unspecified (principal)

== ENCOUNTER → 2023-10-30 | Outpatient (REF) ==
[~2023-10-30] MED LIST changes: +ACET32TAB PO; +ASPI81TA26 PO; +ATOR40TA75 PO; +BISA10SU4 PR; +CARV6.25 PO; +DICL1PAT6 TOP; +ELIQ2.5T PO; +FAMO20TA PO; +FLEEENE12 PR; +FURO10EL PO; +GLUC1KIT IM; +INSUH10VL SC; +LEVO125T4 PO; +LIDO5TD TD; +MELA5TAB58 PO; +METO25TA PO; +MOM30SS2 PO; +POTA20PW PO; +SENN-52 PO; +TORS100T PO; +VANI1CRE5 TOP
== END ==
PROVIDERS: ATTEND Internal Medicine
DX: I50.9 Heart failure, unspecified (principal); Z53.8 Procedure and treatment not carried out for other reasons

== ENCOUNTER → 2023-11-06 | Outpatient (REF) | PROVIDERS: ATTEND Internal Medicine | DX: I50.9 Heart failure, unspecified (principal); Z53.8 Procedure and treatment not carried out for other reasons ==

== ENCOUNTER → 2023-11-13 | Outpatient (REF) ==
[2023-11-13 11:38] LABS: HEMATOCRIT 38.4 % (36.0-47.0); HEMOGLOBIN 11.8 g/dl (12.0-15.5); MEAN CORPUSCULAR HEMOGLOBIN 30.4 pg (27.0-33.0); MEAN CORPUSCULAR HGB CONC 30.7 g/dl (32.0-36.5); PLATELET COUNT, AUTOMATED 120 10^3/uL (150-450); RED BLOOD COUNT 3.88 10^6/uL (4.00-5.40); WHITE BLOOD COUNT 8.1 10^3/uL (4.0-10.0)
[2023-11-13 12:04] LABS: CALCIUM LEVEL 8.8 MG/DL (8.3-10.6); CREATININE FOR GFR 4.73 MG/DL (0.55-1.30); GLOMERULAR FILTRATION RATE 9.7 (>39); POTASSIUM SERUM 4.4 MMOL/L (3.5-5.1)
== END ==
PROVIDERS: ATTEND Internal Medicine
DX: I50.9 Heart failure, unspecified (principal)

== ENCOUNTER 2023-11-16 16:29 | Inpatient (IN) | payer MEDICARE, OTHER, MEDICAID ==
[~2023-11-16] VITALS: Ht 167.6 cm; Wt 100.5 kg
[~2023-11-16 16:29] MED LIST changes: -ACET1TAB55 PO; -DULC10SU2 PR; -FAMO20TA4 PO; -INSU100V3 SC; -LIDO5TD TOP; -MILKSUS3 PO; -SENN-23 PO
[2023-11-16 17:12] LABS: VENOUS BASE EXCESS 1.8 (-2.0-2.0); VENOUS HCO3 27.3 MMOL/L (23.0-27.0); VENOUS O2 SATURATION 75.2 % (60.0-80.0); VENOUS PARTIAL PRESSURE CO2 46.3 mmHg (38.0-50.0); VENOUS PARTIAL PRESSURE O2 41.2 mmHg (30.0-50.0); VENOUS PH 7.388 UNITS (7.330-7.430); VENOUS STANDARD HCO3 25.5 MMOL/L; VENOUS TOTAL CO2 28.7 MMOL/L (24.0-28.0)
[2023-11-16] MEDS: ACETAMINOPHEN 325 MG TAB PO ONE (17:15)
[2023-11-16 17:36] LABS: APPEARANCE, URINE MANUAL TURBID (CLEAR); COLOR, URINE MANUAL BROWN (YELLOW)
[2023-11-16 17:37] LABS: BILIRUBIN, URINE MANUAL 2+ (NEGATIVE); BLOOD URINE MANUAL POSITIVE (NEGATIVE); GLUCOSE, URINE (UA) MANUAL NEGATIVE (NEGATIVE); KETONE, URINE MANUAL NEGATIVE (NEGATIVE); LEUKOCYTE ESTERASE, URINE MAN POSITIVE (NEGATIVE); NITRITE, URINE MANUAL POSITIVE (NEGATIVE); PROTEIN, URINE MANUAL 2+ mg/dL (NEGATIVE); SPECIFIC GRAVITY,URINE MANUAL 1.025 (1.002-1.035); UROBILINOGEN, URINE MANUAL NORMAL (NORMAL)
[2023-11-16 17:40] LABS: ALBUMIN 3.2 G/DL (3.2-5.2); BILIRUBIN,DIRECT 1.1 MG/DL (<0.4); BILIRUBIN,TOTAL 1.8 MG/DL (0.3-1.2); CALCIUM LEVEL 8.6 MG/DL (8.3-10.6); CREATININE FOR GFR 4.04 MG/DL (0.55-1.30); GLOMERULAR FILTRATION RATE 11.6 (>39); POTASSIUM SERUM 4.3 MMOL/L (3.5-5.1); TOTAL PROTEIN 7.3 G/DL (5.7-8.2)
[2023-11-16 17:43] LABS: BASO % 0.4 % (0.0-1.0); HEMATOCRIT 39.6 % (36.0-47.0); HEMOGLOBIN 12.4 g/dl (12.0-15.5); LYMPH # 0.4 10^3/uL (1.5-5.0); LYMPH % 4.3 % (24.0-44.0); MEAN CORPUSCULAR HEMOGLOBIN 30.7 pg (27.0-33.0); MEAN CORPUSCULAR HGB CONC 31.3 g/dl (32.0-36.5); MONO % 9.9 % (2.0-8.0); NEUTROPHILS # 8.5 10^3/uL (1.5-8.5); NEUTROPHILS % 84.9 % (36.0-66.0); PLATELET COUNT, AUTOMATED 160 10^3/uL (150-450); RED BLOOD COUNT 4.04 10^6/uL (4.00-5.40)
[2023-11-16 17:43] LABS: BACTERIA, URINE MOD AMOUNT; RBC, URINE TNTC /hpf (0-3); RENAL EPITHELIAL CELLS, URINE SMALL AMOUNT /hpf; SQUAMOUS EPITHELIAL CELL URINE SMALL AMOUNT /hpf (SMALL AMT); WBC, URINE TNTC /hpf (0-3)
[2023-11-16 17:44] LABS: HYALINE CAST, URINE NONE SEEN /lpf (0-1)
[2023-11-16 17:45] LABS: AMORPHOUS SEDIMENT, URINE LARGE AMOUNT (NEGATIVE)
[2023-11-16 17:47] LABS: PROCALCITONIN 1.53 ng/ml
[2023-11-16 17:48] LABS: INR 1.52; PARTIAL THROMBOPLASTIN TIME 46.1 SECONDS (24.8-34.2); PROTHROMBIN TIME 17.8 SECONDS (12.5-14.5)
[2023-11-16] MEDS ORDERED: FAMO20TA4 PO (18:00)
[2023-11-16] MEDS ORDERED: VANI1CRE5 TOP (18:00)
[2023-11-16] MEDS ORDERED: DICL1PAT6 TOP (18:00)
[2023-11-16] MEDS ORDERED: FLEEENE12 PR (18:00)
[2023-11-16] MEDS ORDERED: SENN-23 PO (18:00)
[2023-11-16] MEDS ORDERED: DULC10SU2 PR (18:00)
[2023-11-16] MEDS ORDERED: MILKSUS3 PO (18:00)
[2023-11-16] MEDS ORDERED: LIDO5TD TOP (18:00)
[2023-11-16] MEDS ORDERED: INSU100V3 SC (18:00)
[2023-11-16] MEDS ORDERED: ACET1TAB55 PO (18:00)
[2023-11-16] MEDS ORDERED: ELIQ2.5T PO (18:00)
[2023-11-16] MEDS ORDERED: INSUH10VL SC (18:02)
[2023-11-16] MEDS ORDERED: HOME MED LIST COMPLETE! XX SCH (18:05)
[2023-11-16 18:16] LABS: ANISOCYTOSIS 3+
[2023-11-16 18:17] LABS: PLATELET ESTIMATE NORMAL (NORMAL)
[2023-11-16] MEDS: cefTRIAXone SOD 2 GM in D5W MINI-BAG PLUS 50 ML IV ONE (18:56)
[2023-11-16 19:12] LABS: MAGNESIUM LEVEL 1.9 MG/DL (1.8-2.4)
[2023-11-16] MEDS: INSULIN LISPRO (NovoLOG) PER UNIT SC SCH (21:00)
[2023-11-16] MEDS ORDERED: RAMELTEON 8 MG TAB (ROZEREM) PO PRN (21:05)
[2023-11-16] MEDS ORDERED: GLUCOSE 4 GM CHEW PO PRN (21:05)
[2023-11-16] MEDS ORDERED: ONDANSETRON 4MG 2ML VIAL IV PRN (21:05)
[2023-11-16] MEDS ORDERED: FLEET ENEMA PR PRN (21:05)
[2023-11-16] MEDS ORDERED: GLUCAGON INJ 1MG VIAL SC PRN (21:05)
[2023-11-16] MEDS ORDERED: PIPERACILLIN/TAZOBACTAM SOD 3.375 GM in D5W MINI-BAG PLUS 50 ML IV SCH (21:05)
[2023-11-16] MEDS ORDERED: BISACODYL 10MG SUPP PR PRN (21:05)
[2023-11-16] MEDS ORDERED: DEXTROSE 50% 50ML SYRINGE IV PRN (21:05)
[2023-11-16] MEDS: APIXABAN 2.5 MG TAB (ELIQUIS) PO SCH (21:57)
[2023-11-16] MEDS: ATORVASTATIN 20 MG TAB PO SCH (21:57)
[2023-11-16] MEDS: LEVEMIR (INSULIN DETEMIR) 1 UNITS/0.01ML SC SCH (21:57)
[2023-11-16] MEDS: CARVedilol 6.25 MG TAB PO SCH (22:00)
[2023-11-16 22:43] VITALS: BP 127/60; TEMP 96.2; O2SAT 98
[2023-11-16] MEDS: PIPERACILLIN/TAZOBACTAM SOD 4.5 GM in D5W MINI-BAG PLUS 50 ML IV SCH (22:54)
[2023-11-16] MEDS: LIDOCAINE 5% (LIDODERM) PATCH TOP SCH (22:54)
[2023-11-16 23:30] VITALS: O2SAT 98
[2023-11-17] VITALS (19 sets, daily range): BP systolic 97–136; BP diastolic 55–67; TEMP 97.2–100; O2SAT 97–100
[2023-11-17] MEDS: LEVOTHYROXINE 125MCG TABLET (0.125MG) PO SCH (06:16)
[2023-11-17 06:50] LABS: HEMATOCRIT 38.7 % (36.0-47.0); HEMOGLOBIN 11.9 g/dl (12.0-15.5); MEAN CORPUSCULAR HEMOGLOBIN 30.4 pg (27.0-33.0); MEAN CORPUSCULAR HGB CONC 30.7 g/dl (32.0-36.5); MEAN CORPUSCULAR VOLUME 98.7 fl (80.0-96.0); PLATELET COUNT, AUTOMATED 131 10^3/uL (150-450); RED BLOOD COUNT 3.92 10^6/uL (4.00-5.40); WHITE BLOOD COUNT 9.2 10^3/uL (4.0-10.0)
[2023-11-17 07:25] LABS: PROCALCITONIN 2.25 ng/ml
[2023-11-17 07:28] LABS: ALBUMIN 2.9 G/DL (3.2-5.2); BILIRUBIN,TOTAL 1.4 MG/DL (0.3-1.2); CALCIUM LEVEL 8.5 MG/DL (8.3-10.6); CREATININE FOR GFR 4.84 MG/DL (0.55-1.30); GLOMERULAR FILTRATION RATE 9.4 (>39); PHOSPHORUS LEVEL 5.6 MG/DL (2.4-5.1); POTASSIUM SERUM 4.3 MMOL/L (3.5-5.1); TOTAL PROTEIN 6.6 G/DL (5.7-8.2)
[2023-11-17] MEDS: INSULIN LISPRO (NovoLOG) PER UNIT SC SCH (07:56)
[2023-11-17] MEDS: PANTOPRAZOLE 40MG TAB (PROTONIX) PO SCH (09:00)
[2023-11-17] MEDS: ACETAMINOPHEN TAB 650MG DOSE (2X325MG) PO PRN (09:00)
[2023-11-17] MEDS: SENOKOT S TAB PO SCH (09:00)
[2023-11-17] MEDS: allopurinoL 100 MG TAB PO SCH (09:03)
[2023-11-17] MEDS: ASPIRIN 81MG ENTERIC TABLET PO SCH (09:03)
[2023-11-17] MEDS: VANICREAM MOISTURIZING SKIN CREAM 113GM TUBE TOP SCH (09:04)
[2023-11-17] MEDS: DICLOFENAC EPOLAMINE 1.3% PATCH TOP SCH (09:05)
[2023-11-17] MEDS: NYSTATIN 100,000 UNITS/GM TOPICAL PWD 15GM TOP SCH (09:05)
[2023-11-17] MEDS: CEPACOL LOZENGE PO PRN (18:06)
[2023-11-18] VITALS (14 sets, daily range): BP systolic 99–128; BP diastolic 53–68; TEMP 97.2–97.5; O2SAT 86–100
[2023-11-18] MEDS ORDERED: LIDOCAINE 1% SDV 5ML VIAL SC PRN (06:00)
[2023-11-18] MEDS ORDERED: SODIUM CHLORIDE 0.9% 1000ML IV PRN (06:00)
[2023-11-18] MEDS ORDERED: HEPARIN 1,000UNITS/ML 10ML VIAL (FOR RADIOLOGY & DIALYSIS ONLY) XX SCH (06:00)
[2023-11-18 06:30] LABS: BASO # 0.1 10^3/uL (0.0-0.2); BASO % 0.6 % (0.0-1.0); EOS # 0.1 10^3/uL (0.0-0.5); EOS % 0.7 % (0.0-3.0); HEMATOCRIT 38.4 % (36.0-47.0); LYMPH # 0.3 10^3/uL (1.5-5.0); MEAN CORPUSCULAR HEMOGLOBIN 30.3 pg (27.0-33.0); MEAN CORPUSCULAR HGB CONC 31.3 g/dl (32.0-36.5); MONO # 0.5 10^3/uL (0.0-0.8); NEUTROPHILS # 8.6 10^3/uL (1.5-8.5); NEUTROPHILS % 90.3 % (36.0-66.0); PLATELET COUNT, AUTOMATED 127 10^3/uL (150-450); RED BLOOD COUNT 3.96 10^6/uL (4.00-5.40); WHITE BLOOD COUNT 9.5 10^3/uL (4.0-10.0)
[2023-11-18 06:59] LABS: ANISOCYTOSIS 1+; MICROCYTOSIS 1+
[2023-11-18 07:00] LABS: POIKILOCYTOSIS 1+
[2023-11-18 07:03] LABS: CALCIUM LEVEL 8.2 MG/DL (8.3-10.6); CREATININE FOR GFR 6.35 MG/DL (0.55-1.30); GLOMERULAR FILTRATION RATE 6.9 (>39); POTASSIUM SERUM 4.1 MMOL/L (3.5-5.1)
[2023-11-18 07:06] LABS: HYPOCHROMASIA 1+
[2023-11-18 07:07] LABS: OVALOCYTES 1+
[2023-11-18 07:12] LABS: PLATELET ESTIMATE DECREASED (NORMAL)
[2023-11-18] MEDS ORDERED: VANCOMYCIN HCL 750 MG, VIAL MATE ADAPTER 1 EACH in D5W 250 ML IV SCH (11:30)
[2023-11-18] MEDS: ACETAMINOPHEN TAB 650MG DOSE (2X325MG) PO SCH (12:00)
[2023-11-18] MEDS: DARBEPOETIN 100MCG/0.5ML *DIALYSIS* SYRINGE IV SCH (13:21)
[2023-11-18] MEDS: HEPARIN 1,000UNITS/ML 10ML VIAL (FOR RADIOLOGY & DIALYSIS ONLY) IV PRN (15:51)
[2023-11-18] MEDS: VANCOMYCIN HCL 750 MG, VIAL MATE ADAPTER 1 EACH in D5W 250 ML IV ONE ×2 (16:33→18:03)
[2023-11-19 03:24] VITALS: BP 129/60; TEMP 97.6; O2SAT 99
[2023-11-19 05:59] LABS: BASO # 0.1 10^3/uL (0.0-0.2); EOS # 0.1 10^3/uL (0.0-0.5); EOS % 1.6 % (0.0-3.0); HEMATOCRIT 38.5 % (36.0-47.0); HEMOGLOBIN 12.1 g/dl (12.0-15.5); LYMPH # 0.4 10^3/uL (1.5-5.0); LYMPH % 5.8 % (24.0-44.0); MEAN CORPUSCULAR HEMOGLOBIN 30.3 pg (27.0-33.0); MEAN CORPUSCULAR HGB CONC 31.4 g/dl (32.0-36.5); MEAN CORPUSCULAR VOLUME 96.5 fl (80.0-96.0); MONO # 0.6 10^3/uL (0.0-0.8); MONO % 8.5 % (2.0-8.0); NEUTROPHILS # 5.7 10^3/uL (1.5-8.5); NEUTROPHILS % 82.5 % (36.0-66.0); PLATELET COUNT, AUTOMATED 134 10^3/uL (150-450); RED BLOOD COUNT 3.99 10^6/uL (4.00-5.40); WHITE BLOOD COUNT 6.9 10^3/uL (4.0-10.0)
[2023-11-19 06:31] LABS: VANCOMYCIN RANDOM 19.4 UG/ML
[2023-11-19 06:32] LABS: ALBUMIN 2.8 G/DL (3.2-5.2); CREATININE FOR GFR 4.22 MG/DL (0.55-1.30); MAGNESIUM LEVEL 1.9 MG/DL (1.8-2.4); PHOSPHORUS LEVEL 4.5 MG/DL (2.4-5.1); POTASSIUM SERUM 3.6 MMOL/L (3.5-5.1)
[2023-11-19 07:44] VITALS: BP 114/50; TEMP 96.8; O2SAT 95
[2023-11-19] MEDS ORDERED: LOPERAMIDE 2 MG CAPLET PO PRN (09:00)
[2023-11-19 11:53] VITALS: BP 104/58; TEMP 97.1; O2SAT 97
[2023-11-19] MEDS: LACTOBACILLUS ACIDOPHILUS CAP (BACID) PO SCH (12:08)
[2023-11-19] MEDS: LOPERAMIDE 2 MG CAPLET PO PRN (15:41)
[2023-11-19 16:30] VITALS: BP 111/57; TEMP 96.7; O2SAT 96
[2023-11-19 20:00] VITALS: BP 117/58; TEMP 96.9; O2SAT 97
[2023-11-19] MEDS: cefTAZidime 2 GM in D5W MINI-BAG PLUS 50 ML IV SCH (20:50)
[2023-11-19 23:52] VITALS: BP 134/63; TEMP 97.2; O2SAT 94
[2023-11-20 03:17] VITALS: BP 117/56; TEMP 96.6; O2SAT 95
[2023-11-20 05:16] LABS: BASO % 0.6 % (0.0-1.0); EOS # 0.2 10^3/uL (0.0-0.5); EOS % 2.2 % (0.0-3.0); HEMATOCRIT 38.2 % (36.0-47.0); HEMOGLOBIN 11.9 g/dl (12.0-15.5); LYMPH # 0.5 10^3/uL (1.5-5.0); LYMPH % 6.9 % (24.0-44.0); MEAN CORPUSCULAR HGB CONC 31.2 g/dl (32.0-36.5); MEAN CORPUSCULAR VOLUME 96.2 fl (80.0-96.0); MONO # 0.6 10^3/uL (0.0-0.8); MONO % 8.3 % (2.0-8.0); NEUTROPHILS # 5.8 10^3/uL (1.5-8.5); NEUTROPHILS % 81.3 % (36.0-66.0); PLATELET COUNT, AUTOMATED 134 10^3/uL (150-450); RED BLOOD COUNT 3.97 10^6/uL (4.00-5.40); WHITE BLOOD COUNT 7.2 10^3/uL (4.0-10.0)
[2023-11-20 05:39] LABS: VANCOMYCIN RANDOM 16.7 UG/ML
[2023-11-20 05:41] LABS: ALBUMIN 2.6 G/DL (3.2-5.2); CREATININE FOR GFR 5.44 MG/DL (0.55-1.30); GLOMERULAR FILTRATION RATE 8.2 (>39); PHOSPHORUS LEVEL 4.4 MG/DL (2.4-5.1); POTASSIUM SERUM 3.4 MMOL/L (3.5-5.1)
[2023-11-20] MEDS ORDERED: SODIUM CHLORIDE 0.9% 1000ML IV PRN (06:00)
[2023-11-20] MEDS ORDERED: HEPARIN 1,000UNITS/ML 10ML VIAL (FOR RADIOLOGY & DIALYSIS ONLY) IV PRN (06:00)
[2023-11-20] MEDS ORDERED: LIDOCAINE 1% SDV 5ML VIAL SC PRN (06:00)
[2023-11-20] MEDS: POTASSIUM CHLORIDE 10MEQ SR TABLET PO ONE (07:42)
[2023-11-20] MEDS: LOPERAMIDE 2 MG CAPLET PO SCH (09:00)
[2023-11-20] MEDS: HEPARIN 1,000UNITS/ML 10ML VIAL (FOR RADIOLOGY & DIALYSIS ONLY) XX SCH (11:32)
[2023-11-20 12:16] VITALS: BP 122/60; TEMP 96.8; O2SAT 97
[2023-11-20] MEDS: VANCOMYCIN HCL 1,000 MG, VIAL MATE ADAPTER 1 EACH in D5W 250 ML IV SCH (15:04)
[2023-11-20 16:13] VITALS: BP 131/60; TEMP 97; O2SAT 97
[2023-11-20] MEDS: FIBER-CON 625 MG TAB PO SCH (18:27)
[2023-11-20] MEDS: CHOLESTYRAMINE 4GM PWD PKT PO SCH (18:27)
[2023-11-20 19:36] VITALS: BP 120/57; TEMP 96.9; O2SAT 97
[2023-11-21] VITALS: BP 130/67; TEMP 97.7; O2SAT 95
[2023-11-21 05:36] VITALS: BP 131/65; TEMP 97.3; O2SAT 95
[2023-11-21 05:59] LABS: BASO # 0.1 10^3/uL (0.0-0.2); BASO % 0.7 % (0.0-1.0); EOS # 0.1 10^3/uL (0.0-0.5); EOS % 1.6 % (0.0-3.0); HEMATOCRIT 40.9 % (36.0-47.0); HEMOGLOBIN 12.6 g/dl (12.0-15.5); LYMPH # 0.6 10^3/uL (1.5-5.0); LYMPH % 8.8 % (24.0-44.0); MEAN CORPUSCULAR HEMOGLOBIN 29.9 pg (27.0-33.0); MEAN CORPUSCULAR HGB CONC 30.8 g/dl (32.0-36.5); MEAN CORPUSCULAR VOLUME 97.1 fl (80.0-96.0); MONO # 0.6 10^3/uL (0.0-0.8); MONO % 8.1 % (2.0-8.0); NEUTROPHILS # 5.6 10^3/uL (1.5-8.5); NEUTROPHILS % 80.2 % (36.0-66.0); PLATELET COUNT, AUTOMATED 151 10^3/uL (150-450); RED BLOOD COUNT 4.21 10^6/uL (4.00-5.40); WHITE BLOOD COUNT 6.9 10^3/uL (4.0-10.0)
[2023-11-21 06:24] LABS: ALBUMIN 2.7 G/DL (3.2-5.2); CALCIUM LEVEL 8.3 MG/DL (8.3-10.6); CREATININE FOR GFR 4.04 MG/DL (0.55-1.30); GLOMERULAR FILTRATION RATE 11.6 (>39); POTASSIUM SERUM 3.6 MMOL/L (3.5-5.1)
[2023-11-21 07:33] VITALS: BP 162/70; TEMP 97.5; O2SAT 97
[2023-11-21 08:26] VITALS: BP 162/70
[2023-11-21] MEDS ORDERED: FIBE62TA PO (08:27)
[2023-11-21] MEDS ORDERED: RISATAB3 PO (08:27)
[2023-11-21] MEDS ORDERED: LOPE2CA PO (08:27)
[2023-11-21] MEDS ORDERED: LEVO1TAB38 PO (08:27)
[2023-11-21] MEDS: LevoFLOXacin 750 MG TABLET PO ONE (09:14)
[2023-11-21 09:39] VITALS: BP 127/59
[2023-11-21] MEDS ORDERED: LOPERAMIDE 2 MG CAPLET PO PRN (10:30)
[2023-11-21 11:11] VITALS: BP 138/61; TEMP 98; O2SAT 97
== END 2023-11-21 12:34 | DRG 871 ==
LOC: M ED 16:29 → EDBD 16:29 → M ED INP 20:48 → M PCU 22:29
PROVIDERS: ADMIT Preventive Medicine Undersea and Hyperbaric Medicine; ATTEND Internal Medicine
PROC: 5A1D70Z Performance of Urinary Filtration, Intermittent, Less than 6 Hours Per Day (ICD-10-PCS; principal; 2023-11-18)
DX: A41.59 Other Gram-negative sepsis (principal); N18.6 End stage renal disease; N39.0 Urinary tract infection, site not specified; I13.2 Hypertensive heart and chronic kidney disease with heart failure and with stage 5 chronic kidney disease, or end stage renal disease; J96.11 Chronic respiratory failure with hypoxia; I50.22 Chronic systolic (congestive) heart failure; I25.10 Atherosclerotic heart disease of native coronary artery without angina pectoris; I25.2 Old myocardial infarction; I48.91 Unspecified atrial fibrillation; E78.5 Hyperlipidemia, unspecified; E11.22 Type 2 diabetes mellitus with diabetic chronic kidney disease; E03.9 Hypothyroidism, unspecified; Z66 Do not resuscitate; M10.9 Gout, unspecified; K21.9 Gastro-esophageal reflux disease without esophagitis; D63.1 Anemia in chronic kidney disease; J44.9 Chronic obstructive pulmonary disease, unspecified; I27.20 Pulmonary hypertension, unspecified; I25.5 Ischemic cardiomyopathy; G47.33 Obstructive sleep apnea (adult) (pediatric); E66.01 Morbid (severe) obesity due to excess calories; I89.0 Lymphedema, not elsewhere classified; I87.2 Venous insufficiency (chronic) (peripheral); K59.09 Other constipation; R19.7 Diarrhea, unspecified; L89.616 Pressure-induced deep tissue damage of right heel; L89.626 Pressure-induced deep tissue damage of left heel; L89.896 Pressure-induced deep tissue damage of other site; L89.152 Pressure ulcer of sacral region, stage 2; Z99.81 Dependence on supplemental oxygen; Z90.49 Acquired absence of other specified parts of digestive tract; Z95.5 Presence of coronary angioplasty implant and graft; Z99.2 Dependence on renal dialysis; Z68.35 Body mass index [BMI] 35.0-35.9, adult

== ENCOUNTER → 2023-11-16 | Outpatient (REF) | payer MEDICAID, MEDICARE, OTHER ==
[~2023-11-16] MED LIST changes: +ACET1TAB55 PO; +DULC10SU2 PR; +FAMO20TA4 PO; +INSU100V3 SC; +LIDO5TD TOP; +MILKSUS3 PO; +SENN-23 PO
== END ==
PROVIDERS: ATTEND Physician Assistant
DX: R09.89 Other specified symptoms and signs involving the circulatory and respiratory systems (principal)

== ENCOUNTER → 2023-11-20 | Outpatient (REF) ==
[~2023-11-20] MED LIST changes: +ACET1TAB55 PO; +DULC10SU2 PR; +FAMO20TA4 PO; +FIBE62TA PO; +INSU100V3 SC; +LEVO1TAB38 PO; +LIDO5TD TOP; +LOPE2CA PO; +MILKSUS3 PO; +RISATAB3 PO; +SENN-23 PO
== END ==
PROVIDERS: ATTEND Physician Assistant
DX: N18.6 End stage renal disease (principal); Z53.8 Procedure and treatment not carried out for other reasons

== ENCOUNTER 2023-11-23 08:00 | Observation (INO) | payer MEDICARE, OTHER ==
[~2023-11-23] VITALS: Ht 167.6 cm; Wt 107.0 kg
[2023-11-23] MEDS: PHENYLEPHRINE 1% NASAL DROP 30 ML ONE (09:55)
[2023-11-23] MEDS: LIDOCAINE 4% TOPICAL SOLN 50 ML BTL TOP ONE (09:56)
[2023-11-23 11:26] LABS: HEMATOCRIT 42.7 % (36.0-47.0); HEMOGLOBIN 13.6 g/dl (12.0-15.5); MEAN CORPUSCULAR HEMOGLOBIN 30.6 pg (27.0-33.0); MEAN CORPUSCULAR HGB CONC 31.9 g/dl (32.0-36.5); PLATELET COUNT, AUTOMATED 232 10^3/uL (150-450); RED BLOOD COUNT 4.45 10^6/uL (4.00-5.40)
[2023-11-23 11:53] LABS: CALCIUM LEVEL 8.2 MG/DL (8.3-10.6); CREATININE FOR GFR 4.14 MG/DL (0.55-1.30); GLOMERULAR FILTRATION RATE 11.3 (>39)
[2023-11-23] MEDS: OXYMETAZOLINE 0.05% NASAL SPRAY (AFRIN) ONE (12:43)
[2023-11-23] MEDS: TRANEXAMIC ACID 100 MG/ML 10ML VIAL ONE (13:03)
[2023-11-23] MEDS ORDERED: DEXTROSE 50% 50ML SYRINGE IV PRN (14:55)
[2023-11-23] MEDS ORDERED: GLUCAGON INJ 1MG VIAL SC PRN (14:55)
[2023-11-23] MEDS ORDERED: GLUCOSE 4 GM CHEW PO PRN (14:55)
[2023-11-23] MEDS ORDERED: **NOTE PATIENT COMMENT** MISC XX SCH (14:55)
[2023-11-23] MEDS ORDERED: ACID1TAB PO (15:37)
[2023-11-23 15:40] LABS: HEMATOCRIT 40.5 % (36.0-47.0); HEMOGLOBIN 12.7 g/dl (12.0-15.5); MEAN CORPUSCULAR HEMOGLOBIN 30.2 pg (27.0-33.0); MEAN CORPUSCULAR HGB CONC 31.4 g/dl (32.0-36.5); MEAN CORPUSCULAR VOLUME 96.4 fl (80.0-96.0); PLATELET COUNT, AUTOMATED 240 10^3/uL (150-450); WHITE BLOOD COUNT 10.1 10^3/uL (4.0-10.0)
[2023-11-23] MEDS ORDERED: VANI1CRE5 EX (15:56)
[2023-11-23] MEDS ORDERED: LOPE1CAP5 PO (15:56)
[2023-11-23] MEDS ORDERED: HOME MED LIST COMPLETE! XX SCH (16:00)
[2023-11-23] MEDS ORDERED: LOPERAMIDE 2 MG CAPLET PO PRN (17:40)
[2023-11-23] MEDS: INSULIN LISPRO (NovoLOG) PER UNIT SC SCH (18:11)
[2023-11-23 21:08] LABS: HEMATOCRIT 37.8 % (36.0-47.0); MEAN CORPUSCULAR HEMOGLOBIN 30.2 pg (27.0-33.0); MEAN CORPUSCULAR HGB CONC 31.7 g/dl (32.0-36.5); PLATELET COUNT, AUTOMATED 229 10^3/uL (150-450); RED BLOOD COUNT 3.98 10^6/uL (4.00-5.40); WHITE BLOOD COUNT 10.2 10^3/uL (4.0-10.0)
[2023-11-23] MEDS: ATORVASTATIN 20 MG TAB PO SCH (21:27)
[2023-11-23] MEDS: CARVedilol 6.25 MG TAB PO SCH (21:28)
[2023-11-24 01:15] VITALS: BP 110/55; TEMP 96.6; O2SAT 96
[2023-11-24 03:26] VITALS: BP 129/60; TEMP 96.6; O2SAT 97
[2023-11-24 03:53] LABS: HEMATOCRIT 37.5 % (36.0-47.0); HEMOGLOBIN 11.9 g/dl (12.0-15.5); MEAN CORPUSCULAR HEMOGLOBIN 30.5 pg (27.0-33.0); MEAN CORPUSCULAR HGB CONC 31.7 g/dl (32.0-36.5); MEAN CORPUSCULAR VOLUME 96.2 fl (80.0-96.0); PLATELET COUNT, AUTOMATED 225 10^3/uL (150-450); WHITE BLOOD COUNT 10.7 10^3/uL (4.0-10.0)
[2023-11-24 04:27] LABS: CALCIUM LEVEL 8.9 MG/DL (8.3-10.6); CREATININE FOR GFR 5.21 MG/DL (0.55-1.30); GLOMERULAR FILTRATION RATE 8.6 (>39)
[2023-11-24] MEDS: LEVOTHYROXINE 125MCG TABLET (0.125MG) PO SCH (05:52)
[2023-11-24 07:20] VITALS: BP 148/68; TEMP 96.7; O2SAT 100
[2023-11-24 08:48] LABS: HEMOGLOBIN 11.6 g/dl (12.0-15.5); MEAN CORPUSCULAR HEMOGLOBIN 30.1 pg (27.0-33.0); MEAN CORPUSCULAR HGB CONC 31.4 g/dl (32.0-36.5); MEAN CORPUSCULAR VOLUME 96.1 fl (80.0-96.0); PLATELET COUNT, AUTOMATED 237 10^3/uL (150-450); RED BLOOD COUNT 3.85 10^6/uL (4.00-5.40); WHITE BLOOD COUNT 11.3 10^3/uL (4.0-10.0)
[2023-11-24] MEDS: allopurinoL 100 MG TAB PO SCH (09:45)
[2023-11-24] MEDS: POTASSIUM CHLORIDE 10MEQ SR TABLET PO ONE (09:45)
[2023-11-24] MEDS: PANTOPRAZOLE 40MG TAB (PROTONIX) PO SCH (09:46)
[2023-11-24] MEDS ORDERED: GLUCAGON INJ 1MG VIAL SC PRN (11:15)
[2023-11-24] MEDS ORDERED: DEXTROSE 50% 50ML SYRINGE IV PRN (11:15)
[2023-11-24] MEDS ORDERED: GLUCOSE 4 GM CHEW PO PRN (11:15)
[2023-11-24 11:49] VITALS: BP 146/67; TEMP 96.1; O2SAT 99
[2023-11-24] MEDS: INSULIN LISPRO (NovoLOG) PER UNIT SC SCH ×2 (12:08→20:47)
[2023-11-24 15:53] VITALS: BP 151/66; TEMP 96.4; O2SAT 99
[2023-11-24] MEDS: FAMOTIDINE 20 MG TAB PO SCH (16:00)
[2023-11-24] MEDS: LevoFLOXacin 250 MG TABLET PO SCH (17:40)
[2023-11-24 20:12] VITALS: BP 114/57; TEMP 96.6; O2SAT 98
[2023-11-24 21:21] LABS: HEMATOCRIT 34.6 % (36.0-47.0); HEMOGLOBIN 11.2 g/dl (12.0-15.5); MEAN CORPUSCULAR HEMOGLOBIN 30.8 pg (27.0-33.0); MEAN CORPUSCULAR HGB CONC 32.4 g/dl (32.0-36.5); MEAN CORPUSCULAR VOLUME 95.1 fl (80.0-96.0); PLATELET COUNT, AUTOMATED 246 10^3/uL (150-450); RED BLOOD COUNT 3.64 10^6/uL (4.00-5.40); WHITE BLOOD COUNT 11.2 10^3/uL (4.0-10.0)
[2023-11-25] MEDS ORDERED: SODIUM CHLORIDE 0.9% 1000ML IV PRN (00:20)
[2023-11-25] MEDS ORDERED: HEPARIN 1,000UNITS/ML 10ML VIAL (FOR RADIOLOGY & DIALYSIS ONLY) XX SCH (00:20)
[2023-11-25 03:59] VITALS: BP 136/65; TEMP 96.6; O2SAT 100
[2023-11-25 06:40] LABS: PHOSPHORUS LEVEL 4.9 MG/DL (2.4-5.1)
[2023-11-25 07:36] VITALS: BP 139/56; TEMP 97; O2SAT 96
[2023-11-25 08:17] LABS: CALCIUM LEVEL 8.5 MG/DL (8.3-10.6); CREATININE FOR GFR 5.67 MG/DL (0.55-1.30); GLOMERULAR FILTRATION RATE 7.8 (>39); POTASSIUM SERUM 4.2 MMOL/L (3.5-5.1)
[2023-11-25 09:12] LABS: HEMATOCRIT 36.7 % (36.0-47.0); HEMOGLOBIN 11.6 g/dl (12.0-15.5); MEAN CORPUSCULAR HEMOGLOBIN 30.1 pg (27.0-33.0); MEAN CORPUSCULAR HGB CONC 31.6 g/dl (32.0-36.5); MEAN CORPUSCULAR VOLUME 95.3 fl (80.0-96.0); PLATELET COUNT, AUTOMATED 230 10^3/uL (150-450); RED BLOOD COUNT 3.85 10^6/uL (4.00-5.40); WHITE BLOOD COUNT 10.3 10^3/uL (4.0-10.0)
[2023-11-25] MEDS: HEPARIN 1,000UNITS/ML 10ML VIAL (FOR RADIOLOGY & DIALYSIS ONLY) IV PRN (09:22)
[2023-11-25 12:17] VITALS: BP 118/55
== END 2023-11-25 12:53 ==
LOC: EDBD 08:00 → M ED 08:00 → M ED INP 14:52 → M PCU 11-24 01:12
PROVIDERS: ADMIT Family Medicine; ATTEND Family Medicine
DX: R04.0 Epistaxis (principal); J34.89 Other specified disorders of nose and nasal sinuses; I48.91 Unspecified atrial fibrillation; I25.10 Atherosclerotic heart disease of native coronary artery without angina pectoris; I25.2 Old myocardial infarction; E78.00 Pure hypercholesterolemia, unspecified; I50.20 Unspecified systolic (congestive) heart failure; I13.2 Hypertensive heart and chronic kidney disease with heart failure and with stage 5 chronic kidney disease, or end stage renal disease; N18.6 End stage renal disease; Z99.2 Dependence on renal dialysis; E11.22 Type 2 diabetes mellitus with diabetic chronic kidney disease; K21.9 Gastro-esophageal reflux disease without esophagitis; D63.1 Anemia in chronic kidney disease; J44.9 Chronic obstructive pulmonary disease, unspecified; E03.9 Hypothyroidism, unspecified; J96.11 Chronic respiratory failure with hypoxia; Z99.81 Dependence on supplemental oxygen; K27.9 Peptic ulcer, site unspecified, unspecified as acute or chronic, without hemorrhage or perforation; M10.9 Gout, unspecified; Z87.39 Personal history of other diseases of the musculoskeletal system and connective tissue; Z90.49 Acquired absence of other specified parts of digestive tract; Z95.5 Presence of coronary angioplasty implant and graft; Z98.890 Other specified postprocedural states; E66.01 Morbid (severe) obesity due to excess calories; Z88.2 Allergy status to sulfonamides; Z79.899 Other long term (current) drug therapy; Z79.01 Long term (current) use of anticoagulants; Z79.82 Long term (current) use of aspirin; Z79.4 Long term (current) use of insulin; Z79.890 Hormone replacement therapy; Z66 Do not resuscitate
CPT/HCPCS: 30903; 36415; 80048; 84100; 85027; 86850; 86900; 86901; 99285; G0257; G0378; J1815

== ENCOUNTER → 2023-11-25 | Outpatient (REF) ==
[~2023-11-25] MED LIST changes: +ACID1TAB PO; +LOPE1CAP5 PO; +VANI1CRE5 EX
== END ==
PROVIDERS: ATTEND Internal Medicine
DX: N18.6 End stage renal disease (principal); Z53.8 Procedure and treatment not carried out for other reasons

== ENCOUNTER → 2023-12-02 | Outpatient (REF) ==
[2023-12-02 11:34] LABS: HEMATOCRIT 34.5 % (36.0-47.0); HEMOGLOBIN 11.3 g/dl (12.0-15.5); MEAN CORPUSCULAR HEMOGLOBIN 32.3 pg (27.0-33.0); MEAN CORPUSCULAR HGB CONC 32.8 g/dl (32.0-36.5); MEAN CORPUSCULAR VOLUME 98.6 fl (80.0-96.0); PLATELET COUNT, AUTOMATED 163 10^3/uL (150-450); WHITE BLOOD COUNT 10.7 10^3/uL (4.0-10.0)
[2023-12-02 11:57] LABS: CALCIUM LEVEL 8.1 MG/DL (8.3-10.6); CREATININE FOR GFR 5.63 MG/DL (0.55-1.30); GLOMERULAR FILTRATION RATE 7.9 (>39); POTASSIUM SERUM 3.8 MMOL/L (3.5-5.1)
== END ==
PROVIDERS: ATTEND Internal Medicine
DX: N18.6 End stage renal disease (principal)

== ENCOUNTER → 2023-12-13 | Outpatient (REF) ==
[2023-12-13 08:54] LABS: HEMATOCRIT 33.3 % (36.0-47.0); HEMOGLOBIN 10.8 g/dl (12.0-15.5); MEAN CORPUSCULAR HEMOGLOBIN 32.5 pg (27.0-33.0); MEAN CORPUSCULAR HGB CONC 32.4 g/dl (32.0-36.5); MEAN CORPUSCULAR VOLUME 100.3 fl (80.0-96.0); PLATELET COUNT, AUTOMATED 128 10^3/uL (150-450); RED BLOOD COUNT 3.32 10^6/uL (4.00-5.40); WHITE BLOOD COUNT 7.1 10^3/uL (4.0-10.0)
[2023-12-13 09:26] LABS: CREATININE FOR GFR 4.4 MG/DL (0.55-1.30); GLOMERULAR FILTRATION RATE 10.5 (>39); POTASSIUM SERUM 3.6 MMOL/L (3.5-5.1)
[2023-12-13 09:29] LABS: THYROID STIMULATING HORMONE 3.161 uIU/ML (0.55-4.78)
== END ==
PROVIDERS: ATTEND Physician Assistant
DX: N18.6 End stage renal disease (principal)

== ENCOUNTER → 2024-01-23 | Outpatient (CLI) | payer MEDICARE, OTHER | LOC: M RAD 11:03 | PROVIDERS: ATTEND Surgery | DX: L97.912 Non-pressure chronic ulcer of unspecified part of right lower leg with fat layer exposed (principal); L89.620 Pressure ulcer of left heel, unstageable; R68.89 Other general symptoms and signs; L89.613 Pressure ulcer of right heel, stage 3 ==

== ENCOUNTER → 2025-02-08 | Outpatient (CLI) | payer MEDICARE, OTHER ==
[~2025-02-08] MED LIST changes: +ACET-840 PO; +CALC600C3 PO; +CLOP75TA99 PO; +ENTR1TAB PO; -GLUC1KIT IM; +GLUC1VIA14 IM; +MAGN400T35 PO; +SEVE800T3 PO; +VITA1CHW8 PO
[2025-02-08 08:20] VITALS: TEMP 97.6
[2025-02-08] MEDS: LIDOCAINE 1% MDV 20 ML VIAL SC SCH (08:36)
[2025-02-08 08:50] VITALS: BP 124/58; O2SAT 99
== END ==
LOC: M IRPRO 08:07
PROVIDERS: ATTEND Internal Medicine Nephrology
DX: N18.6 End stage renal disease (principal)

== ENCOUNTER → 2025-02-19 | Outpatient (CLI) | payer MEDICARE, OTHER | LOC: M WUC 09:17 | PROVIDERS: ATTEND Physician Assistant | DX: S69.92XA Unspecified injury of left wrist, hand and finger(s), initial encounter (principal); S09.93XA Unspecified injury of face, initial encounter; W19.XXXA Unspecified fall, initial encounter; Y92.9 Unspecified place or not applicable; Y93.9 Activity, unspecified; Y99.9 Unspecified external cause status ==

== ENCOUNTER → 2025-03-30 | Outpatient (CLI) | payer MEDICARE, OTHER ==
[~2025-03-30] MED LIST changes: +HEPARIN 1,000 UNITS/ML 10 ML VIAL (FOR RADIOLOGY & DIALYSIS ONLY) IV PRN; +ISOVUE-300 61% 100 ML VIAL IV SCH; +LIDOCAINE 1% MDV 20 ML VIAL SC SCH; +MIDAZOLAM INJ 2 MG/2 ML VIAL IV PRN; +NS 250 ML IV SCH
[2025-03-30 12:00] LABS: PLATELET COUNT, AUTOMATED 105 10^3/uL (150-450)
[2025-03-30 12:21] LABS: CALCIUM LEVEL 8.2 MG/DL (8.3-10.6); CARBON DIOXIDE LEVEL 31.0 MMOL/L (20-31); CHLORIDE LEVEL 95.0 MMOL/L (98-107); CREATININE FOR GFR 4.77 MG/DL (0.55-1.30); GLOMERULAR FILTRATION RATE 9.1 (>39); INR 1.19; POTASSIUM SERUM 4.8 MMOL/L (3.5-5.1); SODIUM LEVEL 136.0 MMOL/L (136-145)
== END ==
LOC: M IRPRO 09:45
PROVIDERS: ATTEND Internal Medicine Nephrology
DX: T82.590A Other mechanical complication of surgically created arteriovenous fistula, initial encounter (principal); N18.6 End stage renal disease; Z99.2 Dependence on renal dialysis; E11.22 Type 2 diabetes mellitus with diabetic chronic kidney disease; T82.858A Stenosis of other vascular prosthetic devices, implants and grafts, initial encounter

== ENCOUNTER → 2025-03-30 | Outpatient (CLI) | payer MEDICARE, OTHER ==
[~2025-03-30] MED LIST changes: -HEPARIN 1,000 UNITS/ML 10 ML VIAL (FOR RADIOLOGY & DIALYSIS ONLY) IV PRN; -ISOVUE-300 61% 100 ML VIAL IV SCH; -LIDOCAINE 1% MDV 20 ML VIAL SC SCH; -MIDAZOLAM INJ 2 MG/2 ML VIAL IV PRN; -NS 250 ML IV SCH
== END ==
LOC: M RAD 09:42
PROVIDERS: ATTEND Radiology Diagnostic Radiology
DX: T82.590A Other mechanical complication of surgically created arteriovenous fistula, initial encounter (principal)

== ENCOUNTER → 2025-04-06 | Outpatient (CLI) | payer MEDICARE, OTHER ==
[~2025-04-06] MED LIST changes: +HEPARIN 1,000 UNITS/ML 10 ML VIAL (FOR RADIOLOGY & DIALYSIS ONLY) IV PRN; +MIDAZOLAM INJ 2 MG/2 ML VIAL IV PRN
[2025-04-06 10:04] VITALS: TEMP 96.8
[2025-04-06] MEDS: MIDAZOLAM INJ 2 MG/2 ML VIAL IV PRN (14:11)
[2025-04-06] MEDS: NS 250 ML IV SCH ×2 (14:13→14:50)
[2025-04-06] MEDS: ISOVUE-300 61% 100 ML VIAL IV SCH ×2 (14:49→14:50)
[2025-04-06] MEDS: LIDOCAINE 1% MDV 20 ML VIAL SC SCH ×2 (14:49)
[2025-04-06 15:45] VITALS: BP 106/47; O2SAT 94
== END ==
LOC: M IRPRO 09:46
PROVIDERS: ATTEND Radiology Diagnostic Radiology
DX: N18.6 End stage renal disease (principal)
CPT/HCPCS: 36902; 36907; 36909; 99152; 99153; C1894; J2250; J3010; Q9967